=== PATIENT | female | born 1985 | race Caucasian/White ===

== ENCOUNTER 2017-08-02 04:23 | Outpatient (CLI) | payer OTHER, MEDICAID, SELFPAY | END 2017-08-02 15:00 | PROVIDERS: PCP Obstetrics & Gynecology; Visit Provider Obstetrics & Gynecology | DX: Z34.83 Encounter for supervision of other normal pregnancy, third trimester (principal); Z3A.37 37 weeks gestation of pregnancy | CPT/HCPCS: 59025; G0378 ==

== ENCOUNTER → 2018-04-14 11:58 | Outpatient (CLI) | payer OTHER, MEDICAID, SELFPAY ==
--- NOTE | 2018-04-14 | DI.RAD.S_ITS ---
PROCEDURE: XR HIP W PEL IF DONE RT 2V INDICATIONS: RIGHT HIP PAIN TECHNIQUE: 2 views of the hip were acquired. COMPARISON: None. FINDINGS: Bones: No fractures or dislocations. No suspicious bony lesions. The visualized pelvic ring appears intact. Soft tissues: No suspicious soft tissue calcifications or masses. IMPRESSION: Unremarkable radiographic examination of right hip. Dictated by: Thiago Mc M.D. on 04/14/2018 at 13:18 Approved by: Thiago Mc M.D. on 04/14/2018 at 13:18
== END ==
PROVIDERS: Family Provider Obstetrics & Gynecology; PCP Obstetrics & Gynecology; Visit Provider Family Medicine
DX: M25.551 Pain in right hip (principal)
CPT/HCPCS: 73502

== ENCOUNTER → 2018-04-19 12:32 | Outpatient (CLI) | payer OTHER, MEDICAID, SELFPAY ==
[2018-04-19 12:51] LABS: Add Manual Diff / Slide Review NO; Basophils Percent Auto 0.7 % (0-2); Eosinophils Percent Auto 0.6 % (2-4); Hematocrit 37.9 % (36-46); Hemoglobin 12.1 g/dL (12.0-16.0); Lymphocytes Percent Auto 11.3 % (25-40); Mean Corpuscular Hemoglobin 25.2 PG (26-34); Mean Corpuscular Volume 78.9 fL (80-100); Monocytes Percent Auto 5.8 % (3-14); Neutrophils Absolute Auto 10800 /uL (1500-7000); Neutrophils Percent Auto 81.6 % (50-75); Platelet Count 395 X10^3/uL (150-400); Red Cell Distribution Width 17.2 % (11.6-14.8); White Blood Cell Count 13.2 X10^3/uL (4.5-11.0)
[2018-04-19 13:33] LABS: Iron 163 ug/dL (37-170)
[2018-04-19 14:21] LABS: Ferritin 7.1 ng/mL (6.27-137)
== END ==
PROVIDERS: PCP Obstetrics & Gynecology; Visit Provider Physician Assistant
DX: L65.9 Nonscarring hair loss, unspecified (principal)
CPT/HCPCS: 36415; 82728; 83540; 85025

== ENCOUNTER → 2018-09-28 11:59 | Outpatient (CLI) | payer OTHER, MEDICAID, SELFPAY ==
[2018-09-28 13:59] LABS: HEMOLYSIS < 15 (0-50); Iron 30 ug/dL (37-170)
[2018-09-28 14:10] LABS: Percent Iron Saturation 11 % (15-50); Total Iron Binding Capacity 261 ug/dL (265-497); Transferrin 247 mg/dL (206-381)
[2018-09-28 15:59] LABS: Ferritin 12.9 ng/mL (6.27-137)
== END ==
PROVIDERS: Family Provider Obstetrics & Gynecology; PCP Obstetrics & Gynecology; Visit Provider Physician Assistant
DX: L65.9 Nonscarring hair loss, unspecified (principal)
CPT/HCPCS: 36415; 82728; 83540; 83550

== ENCOUNTER → 2019-02-16 11:25 | Outpatient (CLI) | payer OTHER, MEDICAID, SELFPAY ==
--- NOTE | 2019-02-16 | DI.RAD.S_ITS ---
PROCEDURE: XR HIP W PEL IF DONE LT 2V INDICATIONS: Pain in left hip TECHNIQUE: AP pelvis with lateral view(s) of the left hip(s). COMPARISON: [facility], LONG, XR HIP W PEL IF DONE RT 2V, 04/14/2018, 12:08. FINDINGS: Bones: No fractures or dislocations. Pelvic ring appears intact. There is appearance of apparent sclerosis which has developed within the femoral heads bilaterally compared to prior exam. It is less prominent on the lateral view. Soft tissues: The visualized bowel gas pattern is normal. No suspicious soft tissue calcifications. IMPRESSION: Apparent appearance of increased sclerosis within the femoral heads bilaterally compared to prior exam. While this is suspected to be partially artifactual, it does appear more prominent when compared to 04/14/18 exam. If pain remains of concern, MRI pelvis is recommended for further evaluation of marrow changes. Dictated by: Ana Rosa Mckeon M.D. on 02/16/2019 at 16:13 Approved by: Ana Rosa Mckeon M.D. on 02/16/2019 at 16:16
== END ==
PROVIDERS: Family Provider Obstetrics & Gynecology; PCP Obstetrics & Gynecology; Visit Provider Pain Medicine Pain Medicine
DX: M25.552 Pain in left hip (principal)
CPT/HCPCS: 73502

== ENCOUNTER 2019-05-01 22:07 | Emergency (ER) | payer OTHER, SELFPAY ==
[2019-05-01 22:09] VITALS: BP 135/90; PULSE 100; RESP 20; TEMP 36.6; O2SAT 100
[2019-05-02 01:01] VITALS: BP 120/80; PULSE 90; RESP 18; O2SAT 98
--- NOTE | 2019-05-02 03:08 | PC.NURSE ---
left at 0122 today vdc without being seen by provider.
== END 2019-05-02 02:15 | disposition left against medical advice (07) ==
PROVIDERS: Family Provider Obstetrics & Gynecology; PCP Obstetrics & Gynecology
CPT/HCPCS: 99281

== ENCOUNTER 2019-05-02 18:16 | Emergency (ER) | payer OTHER, SELFPAY ==
[2019-05-02 18:25] VITALS: BP 136/82; PULSE 104; RESP 16; TEMP 36.6; O2SAT 100
--- NOTE | 2019-05-02 20:26 | ED_ITS ---
HPI - Extremity Problem General Chief complaint: Extremity Problem,Nontraumatic Stated complaint: hip pain, left side Time Seen by Provider: 05/02/19 20:26 History of Present Illness HPI Narrative: 33-year-old woman with a history of lupus and chronic arthralgias along with avascular necrosis of the left hip scheduled for surgery on May [address] Heart at [facility]. She has been on 4 mg q.i.d. of Dilaudid orally for the last 6 years to deal with the lupus arthralgias as well as the hip pain. Her pain medications are managed through [facility]. She currently has plenty of Dilaudid. Over the last 48 hours she has had increasing left hip pain to the point where she is unable to walk and is having pain completely uncontrolled by her Dilaudid was unable to sleep last night. She came into the emergency room and unfortunately due to exceptional volumes she waited 4 hours and left prior to being seen. She denies any recreational IV drug use for at least 6 years. She has no fevers, cough dyspnea, abdominal pain, rashes. Related Data Home Medications Medication Instructions Recorded Confirmed gabapentin [Neurontin] 300 mg PO BID #0 11/16/16 hydromorphone [Dilaudid] 4 mg PO QIDP PRN #0 11/16/16 naproxen sodium 550 mg PO BID #0 11/16/16 Previous Rx's Medication Instructions Recorded oxycodone 10 mg tablet 10 mg PO Q6P PRN #28 tab 08/10/17 norethindrone (contraceptive) 0.35 0.35 mg PO DAILY #28 tab 09/14/17 mg tablet Allergies Allergy/AdvReac Type Severity Reaction Status Date / Time No Known Allergies Allergy Uncoded 07/20/17 12:56 Review of Systems Review of Systems Narrative: All systems reviewed and are unremarkable except as noted in HPI and below Patient History Social History Smoking Status: Never smoker Smoking Status: Never smoker Substance Use Type: does not use Exam Narrative Exam Narrative: General: Healthy appearing, in acute pain lying on her right side with a pillow between her knees unable to move her left hip in any range without severe pain. Able to give a complete and coherent history. Well- nourished well-developed HEENT: Moist mucous membranes, normal sclera with reactive pupils, Neck: No JVD, supple Respiratory: Lungs are clear to auscultation, no wheezing no rales no rhonchi. Full and symmetrical air movement Cardiac: Regular rate and rhythm no murmurs no bruits Abdomen: Soft nontender good bowel tones, no flank pain Skin: Warm and dry, no rashes. There's no redness warmth or erythema around the affected hip her SI joint Neurologic: Grossly neurologically intact with no obvious asymmetries or abnormalities Extremities: No trauma, well perfused Psych: Cooperative, appropriate insight and affect Initial Vital Signs Initial Vital Signs: Vital Signs Temperature 97.8 F 05/02/19 18:25 Pulse Rate 104 H 05/02/19 18:25 Respiratory Rate 16 05/02/19 18:25 Blood Pressure 136/82 05/02/19 18:25 Pulse Oximetry 100 05/02/19 18:25 Course Orders Ordered: ED Orders 05/02/19 20:38 XR hip w pel if done LT 2V Stat 05/02/19 20:44 Complete Blood Count AUTO DIFF Stat Comprehensive Metabolic Panel Stat Discontinued Medications Hydromorphone HCl (Dilaudid) 1 mg IV NOW ONE Stop: 05/02/19 20:39 Last Admin: 05/02/19 21:55 Dose: 1 mg Documented by: Hydromorphone HCl (Dilaudid) 2 mg IV NOW ONE Stop: 05/02/19 20:42 Last Admin: 05/02/19 21:01 Dose: 2 mg Documented by: Vital Signs Vital signs: Vital Signs - 8 hr 05/02/19 18:25 Temperature 97.8 F Pulse Rate 104 H Respiratory Rate 16 Blood Pressure 136/82 Pulse Oximetry 100 MDM - Extremity (Nontraumatic) Lab Data Attestation: I reviewed the patient's lab results. Lab results narrative: Labs reassuring with normal renal function and normal [facility] te blood cell count Result diagrams: 05/02/19 20:55 05/02/19 20:55 Labs: Lab Results 05/02/19 05/02/19 Range/Units 20:55 20:55 WBC 8.0 (4.5-11.0) X10^3/uL RBC 4.49 (4.0-5.2) X10^6/uL Hgb 12.8 (12.0-16.0) g/dL Hct 37.9 (36-46) % MCV 84.5 (80-100) fL MCH 28.5 (26-34) PG MCHC 33.7 (30-36) % RDW 13.6 (11.6-14.8) % Plt Count 363 (150-400) X10^3/uL Neut % (Auto) 69.4 (50-75) % Lymph % (Auto) 21.3 L (25-40) % Gage % (Auto) 7.8 (3-14) % Eos % (Auto) 1.1 L (2-4) % Baso % (Auto) 0.4 (0-2) % Neut # (Auto) 5500 (4394-4319) /uL Lymph # (Auto) 1700 (7339-9071) /uL Gage # (Auto) 600 (0-900) /uL Eos # (Auto) 100 (0-450) /uL Baso # (Auto) 0 (0-100) /uL Sodium 140 (137-145) mmol/L Potassium 4.1 (3.4-5.1) mmol/L Chloride 104 (98-107) mmol/L Carbon Dioxide 28 (22-32) mmol/L BUN 28 H (7-17) mg/dL Creatinine 0.50 L (0.52-1.04) mg/dL Estimated GFR > 60.0 (>60) mL/min BUN/Creatinine Ratio 56.0 H (6-22) Glucose 97 (70-100) mg/dL Calcium 9.4 (8.4-10.2) mg/dL Total Bilirubin 0.3 (0.2-1.3) mg/dL AST 24 (14-36) IU/L ALT 16 (<35) IU/L Alkaline Phosphatase 109 (38-126) U/L Total Protein 7.8 (6.3-8.2) g/dL Albumin 4.2 (3.5-5.0) g/dL Globulin 3.6 (1.7-4.1) g/dL Albumin/Globulin Ratio 1.2 (1.0-2.8) Imaging Data Pelvis and hip x-ray: Radiologist's Impression: IMPRESSION: Slightly increased cortical irregularity of the femoral heads when compared with the prior plain film dated 02/16/19 suggesting progression of avascular necrosis of the bilateral femoral heads. No findings to suggest vasile collapse. Dictated by: Archana Michel M.D. on 05/02/2019 at 21:03 [facility] Narrative Medical decision making narrative: Feeling better after 2 mg of IV Dilaudid at least able to move. Talked about additional pain control will do another mg of IV Dilaudid just prior to discharge. She has her 4 mg of p.o. Dilaudid to take this evening. Knowing that she will be having surgery on Tuesday with pain management changing to the orthopedist and that she does have plenty of oral Dilaudid at home I have suggested that she take up to 6 tablets rather than the prescribed 4 tablets on the 1 day prior to her surgery. 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 I'm sorry that your pain has gotten so much worse just prior to your surgery. That labs and x-rays do indicate that there is no acute changes and we need to simply help you manage your pain for another 48 hours I am going to suggest that you take up to 6 of your oral dilaudid tomorrow (rather than your prescribed 4mg). This is outside of the parameters for your pain contract with [facility], but you should not run out of pain meds early due to the scheduled surgery. If the surgeon has not requested stopping NSAIDS prior to surgery, please continue the naprosen. I hope your surgery goes well. Prescriptions: No Action naproxen sodium 550 MG tablet 550 mg PO BID Qty: 0 RF: 0 gabapentin [Neurontin] 300 MG capsule 300 mg PO BID Qty: 0 RF: 0 hydromorphone [Dilaudid] 4 MG tablet 4 mg PO QIDP PRNQty: 0 RF: 0 oxycodone 10 mg tablet 10 mg PO Q6P PRN (Reason: pain) Qty: 28 RF: 0 norethindrone (contraceptive) [Ortho Micronor] 0.35 mg tablet 0.35 mg PO DAILY Qty: 28 RF: 11 Referrals: Ashley Fulton MD [Primary Care Provider] -
--- NOTE | 2019-05-02 20:38 | DI.RAD.S_ITS ---
PROCEDURE: XR HIP W PEL IF DONE LT 2V INDICATIONS: Pain, avascular necrosis, concern for collapse TECHNIQUE: AP pelvis with lateral view(s) of the right hip(s). COMPARISON: [facility], , XR HIP W PEL IF DONE LT 2V, 02/16/2019, 11:38. FINDINGS: Bones: Sclerosis of the bilateral femoral heads is slightly more pronounced when compared with the prior plain film dated . No definite collapse, fracture, or dislocation. Soft tissues: The visualized bowel gas pattern is normal. No suspicious soft tissue calcifications. IMPRESSION: Slightly increased cortical irregularity of the femoral heads when compared with the prior plain film dated 02/16/19 suggesting progression of avascular necrosis of the bilateral femoral heads. No findings to suggest vasile collapse. Dictated by: Archana Michel M.D. on 05/02/2019 at 21:03 Approved by: Archana Michel M.D. on 05/02/2019 at 21:06
[2019-05-02] MEDS: HYDROMORPHONE 1 MG INJ 2 MG IV (21:01)
[2019-05-02 21:05] LABS: Add Manual Diff / Slide Review NO; Basophils Absolute Auto 0 /uL (0-100); Basophils Percent Auto 0.4 % (0-2); Eosinophils Absolute Auto 100 /uL (0-450); Eosinophils Percent Auto 1.1 % (2-4); Hematocrit 37.9 % (36-46); Hemoglobin 12.8 g/dL (12.0-16.0); Lymphocytes Absolute Auto 1700 /uL (1100-4500); Lymphocytes Percent Auto 21.3 % (25-40); Mean Corpuscular HGB Conc 33.7 % (30-36); Mean Corpuscular Hemoglobin 28.5 PG (26-34); Mean Corpuscular Volume 84.5 fL (80-100); Monocytes Absolute Auto 600 /uL (0-900); Monocytes Percent Auto 7.8 % (3-14); Neutrophils Absolute Auto 5500 /uL (1500-7000); Neutrophils Percent Auto 69.4 % (50-75); Platelet Count 363 X10^3/uL (150-400); Red Blood Cell Count 4.49 X10^6/uL (4.0-5.2); Red Cell Distribution Width 13.6 % (11.6-14.8)
[2019-05-02 21:18] LABS: Alanine Aminotransferase 16 IU/L (<35); Albumin 4.2 g/dL (3.5-5.0); Albumin Globulin Ratio 1.2 (1.0-2.8); Alkaline Phosphatase 109 U/L (38-126); Aspartate Aminotransferase 24 IU/L (14-36); Bilirubin Total 0.3 mg/dL (0.2-1.3); Blood Urea Nitrogen 28 mg/dL (7-17); Calcium 9.4 mg/dL (8.4-10.2); Carbon Dioxide 28 mmol/L (22-32); Chloride 104 mmol/L (98-107); Estimated Glomerular Filt Rate > 60.0 mL/min (>60); Globulin 3.6 g/dL (1.7-4.1); Glucose 97 mg/dL (70-100); HEMOLYSIS < 15 (0-50); Potassium 4.1 mmol/L (3.4-5.1); Sodium 140 mmol/L (137-145); Total Protein 7.8 g/dL (6.3-8.2)
[2019-05-02] MEDS: HYDROMORPHONE 1 MG INJ IV (21:55)
[2019-05-02 22:31] VITALS: BP 118/70; PULSE 79; RESP 16; O2SAT 97
== END 2019-05-02 22:31 | disposition home or self-care (01) ==
PROVIDERS: Emergency Provider Emergency Medicine; Family Provider Obstetrics & Gynecology; PCP Obstetrics & Gynecology
DX: M87.052 Idiopathic aseptic necrosis of left femur (principal)
CPT/HCPCS: 73502; 80053; 85025; 96374; 96376; 99283; 99284; J1170

== ENCOUNTER 2019-05-21 12:45 | Outpatient (RCR) | payer OTHER, SELFPAY ==
--- NOTE | 2019-05-03 14:41 | PT.OIE ---
Current Diagnoses Trochanteric bursitis, right hip (05/03/19) Trochanteric bursitis, left hip (05/03/19) Idiopathic aseptic necrosis of left femur (05/03/19) Encounter for other preprocedural examination (05/03/19) Visit Care Team Role Provider Type Ashley Fulton MD Family Provider Physician Primary Care Provider Specialty: SHOT PACKER Address: [address] [place] [address], [id number] Email: [email or web address] Bender Attending Provider Non-Staff Specialty: Medical Address: [address] [place] [address], [id number] Email: Physical Therapy Initial Evaluation PT-OP-A Visit Information Start: 05/03/19 09:44 Freq: Status: Active Protocol: Document 05/03/19 09:44 [facility] (Rec: 05/03/19 10:07 [facility] [id number]) Out-Patient Physical Therapy Visit Information Visit Information Visit Type Initial Evaluation Visit Start Time 09:45 Visit Stop Time 10:30 Total Visit Minutes 45 Visit Number 1 Evaluation Information Evaluation Date 05/03/19 PT-OP-B Current Condition Start: 05/03/19 09:44 Freq: Status: Active Protocol: Document 05/03/19 09:44 [facility] (Rec: 05/03/19 10:07 [facility] [id number]) Current Condition History of Current Condition Onset Date March 2018 Kelley began experiencing hip pain Current Complaints severe anterior hip pain on the left and intermittent right sided hip pain History of Current Condition Pt reports she was diagnosed with avascular necrosis She had been getting injections for her bursa and it wasn't helping History of lupus x 6 years ago , she was on a high level of steroids and she has a history of smoking. She is schedule for a anterior approach total hip replacement on the left hip tomorrow 05/04/2019. The right hip still needs to be scheduled out. The right side is very sore as well but they have not scheduled her right side yet. Pt has 5 stairs up to her porch at her house with one railing. Current Functional Impairments (Reported) Functional Limitations- ADL's using a walker to take off pressure from her hips, very limited with ADL's Functional Limitations- Mobility/Gait Pain and decreased mobility at this time, using a FWW for ambulation. She has quite a bit of difficulty walking 2 blocks PT-OP-C Subjective Start: 05/03/19 09:44 Freq: Status: Active Protocol: Document 05/03/19 14:16 [facility] (Rec: 05/03/19 14:27 [facility] [email or web address]) Patient Questionnaires Lower Extremity Functional Scale LEFS Score 20 LEFS Impairment 60 to 79% Impaired (Score 17- 31) OP-PT Pain Assessment Location left anterior and lateral hip Pain Location Details left anterior and lateral hip Intensity 7 Scale Used Numeric (1 - 10) Frequency Constant PT-OP-F Manual Assessment Start: 05/03/19 09:44 Freq: Status: Active Protocol: Document 05/03/19 14:16 [facility] (Rec: 05/03/19 14:27 [facility] [email or web address]) Manual Assessments Soft Tissue Assessment Soft Tissue Mobility Assessment tightness of the lateral quads and ITB, muscle atrophy B PT-OP-G Mobility & Gait Start: 05/03/19 09:44 Freq: Status: Active Protocol: Document 05/03/19 14:16 [facility] (Rec: 05/03/19 14:27 [facility] [email or web address]) OP Mobility Evaluation Bed Mobility Rolling able to roll IND but painful Supine to and from Sit IND Transfers Sit to Stand IND with use of FWW Bed to Chair Transfers IND with use of FWW PT-OP-J Posture/Palpation/Skin Start: 05/03/19 09:44 Freq: Status: Active Protocol: Document 05/03/19 14:16 [facility] (Rec: 05/03/19 14:27 [facility] [email or web address]) Palpation Assessment Location Two Palpation Location anterior hip and groin Palpation Findings Soft Tissue Tightness,Spasm, Muscle Guarding,Tenderness One Palpation Location tenderness over the lateral tronchanteric bursa B Palpation Findings Tenderness PT-OP-K Range of Motion Start: 05/03/19 09:44 Freq: Status: Active Protocol: Document 05/03/19 14:29 [facility] (Rec: 05/03/19 14:30 [facility] [email or web address]) Hip Goniometric Range of Motion Hip Right Hip ROM WFL No Flexion w/Knee Flexed 125 Straight Leg Raise 70 External Rotation 35 Left Hip ROM WFL No Flexion w/Knee Flexed 120 Straight Leg Raise 65 External Rotation 30 Hip ROM Limitations Hip ROM Limitations Pain Comments pt limited at end range ROM due to pain PT-OP-M Strength Start: 05/03/19 09:44 Freq: Status: Active Protocol: Document 05/03/19 14:16 [facility] (Rec: 05/03/19 14:27 [facility] [email or web address]) Hip Strength Hip Manual Muscle Testing Right Flexion (L2) 3 Fair Extension (S1) 3 Fair Abduction 2+ Poor+ External Rotation 3 Fair Left Flexion (L2) 3 Fair Extension (S1) 3 Fair Abduction 2+ Poor+ External Rotation 2+ Poor+ PT-OP-T Assessment and Plan Start: 05/03/19 09:44 Freq: Status: Active Protocol: Document 05/03/19 14:16 [facility] (Rec: 05/03/19 14:27 [facility] [email or web address]) Physical Therapy Assessment Rehab Potential Rehabilitation Potential Excellent Evaluation Complexity Number of Personal Factors/Comorbidities 0 Number of Body Systems Impaired 1-2 Clinical Presentation at Evaluation Stable Impairments Impairments Activity Tolerance,Balance, Functional Mobility,Gait,Pain, Soft Tissue Mobility,Strength Goals Three Impairment limited walking distance to less than 2 blocks due to pain Short Term Goal (STG) Increase walking distance with FWW to 3-4 blocks with overall reduction in pain STG Duration 6 weeks Apprentice Cook Goal (LTG) With gait training Kelley is able to discontinue use of her walking and walking distance is increased to 20-30 minutes without a increase in pain levels Two Impairment Weakness of bilateral hips Short Term Goal (STG) Kelley is educated in preoperative exercises to begin following surgery STG Duration 1 day Apprentice Cook Goal (LTG) Kelley is seen following Left Total hip arthroplasty and tolerating a post op total hip strengthening program. She is able to increase her MMT of the left hip to 4/5 or greater LTG Duration 8 weeks 1 Impairment left sided hip pain rated 7/10 pre surgery Correction Goal (LTG) With PT following total hip arthroplasty pain levels at rest have decreased overall to 2-3/10 LTG Duration 8 weeks Assessment Summary Assessment Kelley presents to PT one day prior to her anterior hip replacement surgery. She reports her doctor had prescribed PT to do prior to surgery but her surgery got moved up and last week she had to cancel due to the heavy snow so therefore today is her first day of PT. Due to anterior hip replacement scheduled tomorrow I did a pre op visit with her. She was instructed in hip precautions for anterior hip replacement and given exercises that she can do after surgery. She is currently ambulating with a fww and her home is set up for after surgery. Questions regarding surgery were answered and Kelley is scheduled to resume PT after her hip surgery. A reassessment will be done at that visit. Physical Therapy Plan Frequency and Duration Frequency of Treatment 2x/Week Duration of Treatment 8 Plan of Care Start Date 05/03/19 Plan of Care End Date 06/28/19 Therapeutic Interventions Therapeutic Interventions Balance Training,Home Exercise Program,Neuromuscular Re- education,Patient/Caregiver Education,Self-Care/Home Management,Soft Tissue Mobilization,Therapeutic Exercises Next Visit Focus/Plan Next Note Type Treatment Note Next Visit Plan Reassessment next visit as Kelley will have had her left total hip replacement on 2019. Treatment will also include right hip as she is experiencing pain in the right as well.
--- NOTE | 2019-05-03 14:41 | PT.OPPOC ---
Physical, Occupational & Speech Therapy At [facility] Current Diagnoses Trochanteric bursitis, right hip (05/03/19) Trochanteric bursitis, left hip (05/03/19) Idiopathic aseptic necrosis of left femur (05/03/19) Encounter for other preprocedural examination (05/03/19) Visit Care Team Role Provider Type Ashley Fulton MD Family Provider Physician Primary Care Provider Specialty: PRINCIPAL CLERK Address: [address] [place] [address], [id number] Email: [email or web address] Bender Attending Provider Non-Staff Specialty: Medical Address: [address] [place] [address] , [place], [address] Email: Plan Of Care PT-OP-T Assessment and Plan Start: 05/03/19 09:44 Freq: Status: Active Protocol: Document 05/03/19 14:16 [facility] (Rec: 05/03/19 14:27 [facility] [email or web address]) Physical Therapy Assessment Rehab Potential Rehabilitation Potential Excellent Evaluation Complexity Number of Personal Factors/Comorbidities 0 Number of Body Systems Impaired 1-2 Clinical Presentation at Evaluation Stable Impairments Impairments Activity Tolerance,Balance, Functional Mobility,Gait,Pain, Soft Tissue Mobility,Strength Goals Three Impairment limited walking distance to less than 2 blocks due to pain Short Term Goal (STG) Increase walking distance with FWW to 3-4 blocks with overall reduction in pain STG Duration 6 weeks [facility] Goal (LTG) With gait training Kelley is able to discontinue use of her walking and walking distance is increased to 20-30 minutes without a increase in pain levels Two Impairment Weakness of bilateral hips Short Term Goal (STG) Kelley is educated in preoperative exercises to begin following surgery STG Duration 1 day [facility] Goal (LTG) Kelley is seen following Left Total hip arthroplasty and tolerating a post op total hip strengthening program. She is able to increase her MMT of the left hip to 4/5 or greater LTG Duration 8 weeks 1 Impairment left sided hip pain rated 7/10 pre surgery Document Controller Goal (LTG) With PT following total hip arthroplasty pain levels at rest have decreased overall to 2-3/10 LTG Duration 8 weeks Assessment Summary Assessment Kelley presents to PT one day prior to her anterior hip replacement surgery. She reports her doctor had prescribed PT to do prior to surgery but her surgery got moved up and last week she had to cancel due to the heavy snow so therefore today is her first day of PT. Due to anterior hip replacement scheduled tomorrow I did a pre op visit with her. She was instructed in hip precautions for anterior hip replacement and given exercises that she can do after surgery. She is currently ambulating with a fww and her home is set up for after surgery. Questions regarding surgery were answered and Kelley is scheduled to resume PT after her hip surgery. A reassessment will be done at that visit. Physical Therapy Plan Frequency and Duration Frequency of Treatment 2x/Week Duration of Treatment 8 Plan of Care Start Date 05/03/19 Plan of Care End Date 06/28/19 Therapeutic Interventions Therapeutic Interventions Balance Training,Home Exercise Program,Neuromuscular Re- education,Patient/Caregiver Education,Self-Care/Home Management,Soft Tissue Mobilization,Therapeutic Exercises Next Visit Focus/Plan Next Note Type Treatment Note Next Visit Plan Reassessment next visit as Kelley will have had her left total hip replacement on 2019. Treatment will also include right hip as she is experiencing pain in the right as well. Plan of Care Dates Plan of Care Start Date 05/03/19 Plan of Care End Date 06/28/19 Electronically Signed by: Wendi Butler, PT 05/03/19 2514 Please Sign and Return: I have reviewed this Plan of Care and certify that the skilled therapy services above are required to meet the patient?s needs. Physician Signature Date Printed Name and Credentials Clinical Instructor Signature Printed Name and Credentials
--- NOTE | 2019-05-17 11:09 | PT.OTRE ---
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) Encounter for other preprocedural examination (05/16/19) Visit Care Team Role Provider Type Ashley Fulton MD Family Provider Physician Primary Care Provider Specialty: MONEY POSITION OFFICER Address: [address] [place] [address], [id number] Email: [email or web address] Randall Bender Attending Provider Non-Staff Specialty: Medical Address: [address] [place] [address], [place], [address] Email: Physical Therapy Re-Evaluation PT-OP-A Visit Information Start: 05/03/19 09:44 Freq: Status: Active Protocol: Document 05/16/19 14:18 [facility] (Rec: 05/16/19 14:19 [facility] [email or web address]) Out-Patient Physical Therapy Visit Information Visit Information Visit Type Re-Evaluation Visit Note pt had her left total hip replacement and is 2 weeks post op today. She has a history of avascular necrosis of bilateral hips and will be planning the right total hip for in the future Visit Start Time 11:15 Visit Stop Time 12:00 Total Visit Minutes 45 Visit Number 2 Evaluation Information Evaluation Date 05/03/19 PT-OP-B Current Condition Start: 05/03/19 09:44 Freq: Status: Active Protocol: Document 05/16/19 11:15 [facility] (Rec: 05/17/19 10:53 [facility] [id number]) Current Condition History of Current Condition Onset Date March 2018 Kelley began experiencing hip pain Current Complaints severe anterior hip pain on the left and intermittent right sided hip pain History of Current Condition Pt reports she was diagnosed with avascular necrosis She had been getting injections for her bursa and it wasn't helping History of lupus x 6 years ago , she was on a high level of steroids and she has a history of smoking. She is 2 weeks post op left total hip replacement (05/04/2019). The right hip still needs to be scheduled out. Pt is ambulating with a fww with WBAT left hip. SHe understands her precautions of avoiding hip extension and ER Pt has 5 stairs up to her porch at her house with one railing. Treatment Goals Patient/Caregiver Goals Pt's goals include decreasing pain levels and return to being able to take care of her children without pain. Current Functional Impairments (Reported) Functional Limitations- Mobility/Gait Pt using FWW, gait feeling better after surgery, she has ambulated outside the house only 1 time since surgery Functional Limitations- Other bending and lifting activities are challanging PT-OP-C Subjective Start: 05/03/19 09:44 Freq: Status: Active Protocol: Document 05/16/19 11:19 [facility] (Rec: 05/16/19 11:26 [facility] [id number]) OP-PT Subjective Patient Comments Patient Comments Pt is here following her total hip replacement on the right side 05/04/19. Pt notes she got the flu the day she was discharged from the hospital. She is using walker for assistance. Took pain meds before her appointment today. Her pain is a 7/10. It hurts to flex her hip and donning and doffing pants and socks. She had a anterior hip replacement and understands precautions. Pt is able to go up and down the stairs. OP-PT Pain Assessment Location left anterior and lateral hip Intensity 7 Scale Used Numeric (1 - 10) Description Aching PT-OP-F Manual Assessment Start: 05/03/19 09:44 Freq: Status: Active Protocol: Document 05/03/19 14:16 [facility] (Rec: 05/03/19 14:27 [facility] [id number]) Manual Assessments Soft Tissue Assessment Soft Tissue Mobility Assessment tightness of the lateral quads and ITB, muscle atrophy B PT-OP-G Mobility & Gait Start: 05/03/19 09:44 Freq: Status: Active Protocol: Document 05/16/19 11:15 [facility] (Rec: 05/17/19 10:53 [facility] [id number]) OP Mobility Evaluation Bed Mobility Rolling able to roll IND but painful Supine to and from Sit IND Transfers Sit to Stand IND with use of FWW Bed to Chair Transfers IND with use of FWW OP Gait Assessment Gait Gait Assistance Required: Independent Distance (Feet) 350 Able to Maintain Weight Bearing Status Yes During Gait Gait Deviations General Gait Pattern Decreased Stride Length Factors Limiting Gait Function Factors Limiting Gait Function Decreased Strength,Limited Range of Motion,Pain PT-OP-J Posture/Palpation/Skin Start: 05/03/19 09:44 Freq: Status: Active Protocol: Document 05/03/19 14:16 [facility] (Rec: 05/03/19 14:27 [facility] [email or web address]) Palpation Assessment Location Two Palpation Location anterior hip and groin Palpation Findings Soft Tissue Tightness,Spasm, Muscle Guarding,Tenderness One Palpation Location tenderness over the lateral tronchanteric bursa B Palpation Findings Tenderness PT-OP-K Range of Motion Start: 05/03/19 09:44 Freq: Status: Active Protocol: Document 05/16/19 11:15 [facility] (Rec: 05/17/19 10:53 [facility] [id number]) Hip Goniometric Range of Motion Hip Measured in Degrees Right Hip ROM WFL No Flexion w/Knee Flexed 125 Straight Leg Raise 70 Abduction 20 External Rotation 35 Left Hip ROM WFL No Flexion w/Knee Flexed 110 Straight Leg Raise 60 External Rotation 30 PT-OP-M Strength Start: 05/03/19 09:44 Freq: Status: Active Protocol: Document 05/16/19 11:15 [facility] (Rec: 05/17/19 10:53 [facility] [id number]) Hip Strength Hip Manual Muscle Testing Right Flexion (L2) 3 Fair Extension (S1) 3 Fair Abduction 2+ Poor+ External Rotation 3 Fair Left Flexion (L2) 2+ Poor+ Abduction 2+ Poor+ External Rotation 2+ Poor+ Comments extension was not retesed today secondary to s/p FRANKY on the left PT-OP-Q Treatments Start: 05/03/19 09:44 Freq: Status: Active Protocol: Document 05/16/19 11:15 [facility] (Rec: 05/17/19 10:57 [facility] [id number]) Therapeutic Exercises Supine Exercises supine AROM HIP ABDUCTION Side left Reps/Minutes x 10 heel slides Supine Exercise Name heel slides Side left Reps/Minutes x 10 quad sets Supine Exercise Name quad sets Side bilateral Reps/Minutes 10 reps holding 5 seconds each Standing Exercises standing hip abduction Standing Exercise Name standing hip abduction Side bilateral Equipment Used at the bars for UE support Reps/Minutes 2 x 10 reps standing side steps Standing Exercise Name standing side steps Side bilateral Reps/Minutes 4 xms length of parallel bars standing calf raises Standing Exercise Name standing calf raises Side bilateral Equipment Used bars for support Reps/Minutes 2 x 10 reps marches at the bars for support Standing Exercise Name standing marches Side bilateral Reps/Minutes 2 x 10 reps PT-OP-T Assessment and Plan Start: 05/03/19 09:44 Freq: Status: Active Protocol: Document 05/16/19 11:15 [facility] (Rec: 05/17/19 11:06 [facility] [id number]) Physical Therapy Assessment Rehab Potential Rehabilitation Potential Excellent Evaluation Complexity Number of Personal Factors/Comorbidities 0 Number of Body Systems Impaired 1-2 Clinical Presentation at Evaluation Stable Impairments Impairments Activity Tolerance,Balance, Functional Mobility,Gait,Pain, Soft Tissue Mobility,Strength Goals One Impairment Decreased left hip ROM s/p FRANKY Short Term Goal (STG) Kelley has improved ROM of the left hip to WFL STG Duration 5 weeks Three Impairment limited walking distance to less than 2 blocks due to pain Short Term Goal (STG) Increase walking distance with FWW to 3-4 blocks with overall reduction in pain STG Duration 6 weeks Care Home Goal (LTG) With gait training Kelley is able to discontinue use of her walking and walking distance is increased to 20-30 minutes without a increase in pain levels Two Impairment Weakness of bilateral hips Short Term Goal (STG) Kelley is educated in preoperative exercises to begin following surgery STG Duration 1 day Care Home Goal (LTG) Kelley is seen following Left Total hip arthroplasty and tolerating a post op total hip strengthening program. She is able to increase her MMT of the left hip to 4/5 or greater LTG Duration 8 weeks 1 Impairment left sided hip pain rated 7/10 pre surgery [employer] Teacher Goal (LTG) With PT following total hip arthroplasty pain levels at rest have decreased overall to 2-3/10 As of 2/5 Kelley has 7/1- pain levels however she notes it is a different pain than before surgery LTG Duration 8 weeks Assessment Summary Assessment Kelley returns to PT today s/p left total hip replacement ( anterior approach). This is due to avascular necrosis of the femoral head. She was seen for 1 visit prior to her surgery for prehab. She is ambulating with a fww and feels that she can take a good amount of weight onto her left leg. She understands her anterior hip precautions and has been using ice at home. She reports so far her right leg has been doing okay, she is complaining of left sided lower back pain. Physical Therapy Plan Frequency and Duration Frequency of Treatment 2x/Week Duration of Treatment 8 Plan of Care Start Date 05/03/19 Plan of Care End Date 06/28/19 Therapeutic Interventions Therapeutic Interventions Balance Training,Home Exercise Program,Neuromuscular Re- education,Patient/Caregiver Education,Self-Care/Home Management,Soft Tissue Mobilization,Therapeutic Exercises Next Visit Focus/Plan Next Note Type Treatment Note Next Visit Plan Increase hip strengthening as tolerated within precautions for s/p anterior approach FRANKY. Continue to strengthen the right hip as well as Kelley will be having surgery on this side at a later date, gait training for community ambulation with fww and stair training
--- NOTE | 2019-05-17 11:11 | PT.OTRE ---
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) Encounter for other preprocedural examination (05/16/19) Visit Care Team Role Provider Type Ashley Fulton MD Family Provider Physician Primary Care Provider Specialty: RECEPTION SPECIALIST Address: [address] [place] [address], [address] Email: [email or web address] Randall Bender Attending Provider Non-Staff Specialty: Medical Address: [address] [place] [address], [place], [address] Email: Physical Therapy Re-Evaluation PT-OP-A Visit Information Start: 05/03/19 09:44 Freq: Status: Active Protocol: Document 05/16/19 14:18 [facility] (Rec: 05/16/19 14:19 [facility] [email or web address]) Out-Patient Physical Therapy Visit Information Visit Information Visit Type Re-Evaluation Visit Note pt had her left total hip replacement and is 2 weeks post op today. She has a history of avascular necrosis of bilateral hips and will be planning the right total hip for in the future Visit Start Time 11:15 Visit Stop Time 12:00 Total Visit Minutes 45 Visit Number 2 Evaluation Information Evaluation Date 05/03/19 PT-OP-B Current Condition Start: 05/03/19 09:44 Freq: Status: Active Protocol: Document 05/16/19 11:15 [facility] (Rec: 05/17/19 10:53 [facility] [id number]) Current Condition History of Current Condition Onset Date March 2018 Kelley began experiencing hip pain Current Complaints severe anterior hip pain on the left and intermittent right sided hip pain History of Current Condition Pt reports she was diagnosed with avascular necrosis She had been getting injections for her bursa and it wasn't helping History of lupus x 6 years ago , she was on a high level of steroids and she has a history of smoking. She is 2 weeks post op left total hip replacement (05/04/2019). The right hip still needs to be scheduled out. Pt is ambulating with a fww with WBAT left hip. SHe understands her precautions of avoiding hip extension and ER Pt has 5 stairs up to her porch at her house with one railing. Treatment Goals Patient/Caregiver Goals Pt's goals include decreasing pain levels and return to being able to take care of her children without pain. Current Functional Impairments (Reported) Functional Limitations- Mobility/Gait Pt using FWW, gait feeling better after surgery, she has ambulated outside the house only 1 time since surgery Functional Limitations- Other bending and lifting activities are challanging PT-OP-C Subjective Start: 05/03/19 09:44 Freq: Status: Active Protocol: Document 05/16/19 11:19 [facility] (Rec: 05/16/19 11:26 [facility] [id number]) OP-PT Subjective Patient Comments Patient Comments Pt is here following her total hip replacement on the right side 05/04/19. Pt notes she got the flu the day she was discharged from the hospital. She is using walker for assistance. Took pain meds before her appointment today. Her pain is a 7/10. It hurts to flex her hip and donning and doffing pants and socks. She had a anterior hip replacement and understands precautions. Pt is able to go up and down the stairs. OP-PT Pain Assessment Location left anterior and lateral hip Intensity 7 Scale Used Numeric (1 - 10) Description Aching PT-OP-F Manual Assessment Start: 05/03/19 09:44 Freq: Status: Active Protocol: Document 05/03/19 14:16 [facility] (Rec: 05/03/19 14:27 [facility] [email or web address]) Manual Assessments Soft Tissue Assessment Soft Tissue Mobility Assessment tightness of the lateral quads and ITB, muscle atrophy B PT-OP-G Mobility & Gait Start: 05/03/19 09:44 Freq: Status: Active Protocol: Document 05/16/19 11:15 [facility] (Rec: 05/17/19 10:53 [facility] [id number]) OP Mobility Evaluation Bed Mobility Rolling able to roll IND but painful Supine to and from Sit IND Transfers Sit to Stand IND with use of FWW Bed to Chair Transfers IND with use of FWW OP Gait Assessment Gait Gait Assistance Required: Independent Distance (Feet) 350 Able to Maintain Weight Bearing Status Yes During Gait Gait Deviations General Gait Pattern Decreased Stride Length Factors Limiting Gait Function Factors Limiting Gait Function Decreased Strength,Limited Range of Motion,Pain PT-OP-J Posture/Palpation/Skin Start: 05/03/19 09:44 Freq: Status: Active Protocol: Document 05/03/19 14:16 [facility] (Rec: 05/03/19 14:27 [facility] [email or web address]) Palpation Assessment Location Two Palpation Location anterior hip and groin Palpation Findings Soft Tissue Tightness,Spasm, Muscle Guarding,Tenderness One Palpation Location tenderness over the lateral tronchanteric bursa B Palpation Findings Tenderness PT-OP-K Range of Motion Start: 05/03/19 09:44 Freq: Status: Active Protocol: Document 05/16/19 11:15 [facility] (Rec: 05/17/19 10:53 [facility] [id number]) Hip Goniometric Range of Motion Hip Measured in Degrees Right Hip ROM WFL No Flexion w/Knee Flexed 125 Straight Leg Raise 70 Abduction 20 External Rotation 35 Left Hip ROM WFL No Flexion w/Knee Flexed 110 Straight Leg Raise 60 External Rotation 30 PT-OP-M Strength Start: 05/03/19 09:44 Freq: Status: Active Protocol: Document 05/16/19 11:15 [facility] (Rec: 05/17/19 10:53 [facility] [id number]) Hip Strength Hip Manual Muscle Testing Right Flexion (L2) 3 Fair Extension (S1) 3 Fair Abduction 2+ Poor+ External Rotation 3 Fair Left Flexion (L2) 2+ Poor+ Abduction 2+ Poor+ External Rotation 2+ Poor+ Comments extension was not retesed today secondary to s/p FRANKY on the left PT-OP-Q Treatments Start: 05/03/19 09:44 Freq: Status: Active Protocol: Document 05/16/19 11:15 [facility] (Rec: 05/17/19 10:57 [facility] [id number]) Therapeutic Exercises Supine Exercises supine AROM HIP ABDUCTION Side left Reps/Minutes x 10 heel slides Supine Exercise Name heel slides Side left Reps/Minutes x 10 quad sets Supine Exercise Name quad sets Side bilateral Reps/Minutes 10 reps holding 5 seconds each Standing Exercises standing hip abduction Standing Exercise Name standing hip abduction Side bilateral Equipment Used at the bars for UE support Reps/Minutes 2 x 10 reps standing side steps Standing Exercise Name standing side steps Side bilateral Reps/Minutes 4 xms length of parallel bars standing calf raises Standing Exercise Name standing calf raises Side bilateral Equipment Used bars for support Reps/Minutes 2 x 10 reps marches at the bars for support Standing Exercise Name standing marches Side bilateral Reps/Minutes 2 x 10 reps PT-OP-T Assessment and Plan Start: 05/03/19 09:44 Freq: Status: Active Protocol: Document 05/16/19 11:15 [facility] (Rec: 05/17/19 11:06 [facility] [id number]) Physical Therapy Assessment Rehab Potential Rehabilitation Potential Excellent Evaluation Complexity Number of Personal Factors/Comorbidities 0 Number of Body Systems Impaired 1-2 Clinical Presentation at Evaluation Stable Impairments Impairments Activity Tolerance,Balance, Functional Mobility,Gait,Pain, Soft Tissue Mobility,Strength Goals One Impairment Decreased left hip ROM s/p FRANKY Short Term Goal (STG) Kelley has improved ROM of the left hip to WFL STG Duration 5 weeks Three Impairment limited walking distance to less than 2 blocks due to pain Short Term Goal (STG) Increase walking distance with FWW to 3-4 blocks with overall reduction in pain STG Duration 6 weeks [facility] Goal (LTG) With gait training Kelley is able to discontinue use of her walking and walking distance is increased to 20-30 minutes without a increase in pain levels Two Impairment Weakness of bilateral hips Short Term Goal (STG) Kelley is educated in preoperative exercises to begin following surgery STG Duration 1 day [facility] Goal (LTG) Kelley is seen following Left Total hip arthroplasty and tolerating a post op total hip strengthening program. She is able to increase her MMT of the left hip to 4/5 or greater LTG Duration 8 weeks 1 Impairment left sided hip pain rated 7/10 pre surgery Piano Regulator Goal (LTG) With PT following total hip arthroplasty pain levels at rest have decreased overall to 2-3/10 As of 2/5 Kelley has 7/1- pain levels however she notes it is a different pain than before surgery LTG Duration 8 weeks Assessment Summary Assessment Kelley returns to PT today s/p left total hip replacement ( anterior approach). This is due to avascular necrosis of the femoral head. She was seen for 1 visit prior to her surgery for prehab. She is ambulating with a fww and feels that she can take a good amount of weight onto her left leg. She understands her anterior hip precautions and has been using ice at home. She reports so far her right leg has been doing okay, she is complaining of left sided lower back pain. Physical Therapy Plan Frequency and Duration Frequency of Treatment 2x/Week Duration of Treatment 8 Plan of Care Start Date 05/16/19 Plan of Care End Date 07/11/19 Therapeutic Interventions Therapeutic Interventions Balance Training,Home Exercise Program,Neuromuscular Re- education,Patient/Caregiver Education,Self-Care/Home Management,Soft Tissue Mobilization,Therapeutic Exercises Next Visit Focus/Plan Next Note Type Treatment Note Next Visit Plan Increase hip strengthening as tolerated within precautions for s/p anterior approach FRANKY. Continue to strengthen the right hip as well as Kelley will be having surgery on this side at a later date, gait training for community ambulation with fww and stair training
--- NOTE | 2019-05-17 11:12 | PT.OPPOC ---
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) Encounter for other preprocedural examination (05/16/19) Visit Care Team Role Provider Type Ashley Fulton MD Family Provider Physician Primary Care Provider Specialty: SUPPORT SERVICES MANAGER Address: [address] [place] [address], [id number] Email: [email or web address] Randall Bender Attending Provider Non-Staff Specialty: Medical Address: [address] [place] [address] , [place], [address] Email: Plan Of Care PT-OP-T Assessment and Plan Start: 05/03/19 09:44 Freq: Status: Active Protocol: Document 05/16/19 11:15 [facility] (Rec: 05/17/19 11:06 [facility] [id number]) Physical Therapy Assessment Rehab Potential Rehabilitation Potential Excellent Evaluation Complexity Number of Personal Factors/Comorbidities 0 Number of Body Systems Impaired 1-2 Clinical Presentation at Evaluation Stable Impairments Impairments Activity Tolerance,Balance, Functional Mobility,Gait,Pain, Soft Tissue Mobility,Strength Goals One Impairment Decreased left hip ROM s/p FRANKY Short Term Goal (STG) Kelley has improved ROM of the left hip to WFL STG Duration 5 weeks Three Impairment limited walking distance to less than 2 blocks due to pain Short Term Goal (STG) Increase walking distance with FWW to 3-4 blocks with overall reduction in pain STG Duration 6 weeks Maintenance Custodian Goal (LTG) With gait training Kelley is able to discontinue use of her walking and walking distance is increased to 20-30 minutes without a increase in pain levels Two Impairment Weakness of bilateral hips Short Term Goal (STG) Kelley is educated in preoperative exercises to begin following surgery STG Duration 1 day Maintenance Custodian Goal (LTG) Kelley is seen following Left Total hip arthroplasty and tolerating a post op total hip strengthening program. She is able to increase her MMT of the left hip to 4/5 or greater LTG Duration 8 weeks 1 Impairment left sided hip pain rated 7/10 pre surgery Maintenance Custodian Goal (LTG) With PT following total hip arthroplasty pain levels at rest have decreased overall to 2-3/10 As of 05/16 Kelley has 7/1- pain levels however she notes it is a different pain than before surgery LTG Duration 8 weeks Assessment Summary Assessment Kelley returns to PT today s/p left total hip replacement ( anterior approach). This is due to avascular necrosis of the femoral head. She was seen for 1 visit prior to her surgery for prehab. She is ambulating with a fww and feels that she can take a good amount of weight onto her left leg. She understands her anterior hip precautions and has been using ice at home. She reports so far her right leg has been doing okay, she is complaining of left sided lower back pain. Physical Therapy Plan Frequency and Duration Frequency of Treatment 2x/Week Duration of Treatment 8 Plan of Care Start Date 05/16/19 Plan of Care End Date 07/11/19 Therapeutic Interventions Therapeutic Interventions Balance Training,Home Exercise Program,Neuromuscular Re- education,Patient/Caregiver Education,Self-Care/Home Management,Soft Tissue Mobilization,Therapeutic Exercises Next Visit Focus/Plan Next Note Type Treatment Note Next Visit Plan Increase hip strengthening as tolerated within precautions for s/p anterior approach FRANKY. Continue to strengthen the right hip as well as Kelley will be having surgery on this side at a later date, gait training for community ambulation with fww and stair training Plan of Care Dates Plan of Care Start Date 05/16/19 Plan of Care End Date 07/11/19 Electronically Signed by: Wendi Butler, PT 05/17/19 [id number] Please Sign and Return: I have reviewed this Plan of Care and certify that the skilled therapy services above are required to meet the patient?s needs. Physician Signature Date Printed Name and Credentials Clinical Instructor Signature Printed Name and Credentials
--- NOTE | 2019-05-21 13:35 | PT.OTN ---
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) Encounter for other preprocedural examination (05/21/19) Physical Therapy Treatment Note PT-OP-A Visit Information Start: 05/03/19 09:44 Freq: Status: Active Protocol: Document 05/21/19 12:46 LRN (Rec: 05/21/19 13:33 LRN [id number]) Out-Patient Physical Therapy Visit Information Visit Information Visit Type Treatment Note Visit Start Time 12:46 Visit Stop Time 13:36 Total Visit Minutes 50 Visit Number 3 Evaluation Information Evaluation Date 05/03/19 PT-OP-B Current Condition Start: 05/03/19 09:44 Freq: Status: Active Protocol: Document 05/16/19 11:15 AMH (Rec: 05/17/19 10:53 AMH [id number]) Current Condition History of Current Condition Onset Date March 2018 Kelley began experiencing hip pain Current Complaints severe anterior hip pain on the left and intermittent right sided hip pain History of Current Condition Pt reports she was diagnosed with avascular necrosis She had been getting injections for her bursa and it wasn't helping History of lupus x 6 years ago , she was on a high level of steroids and she has a history of smoking. She is 2 weeks post op left total hip replacement (05/04/2019). The right hip still needs to be scheduled out. Pt is ambulating with a fww with WBAT left hip. SHe understands her precautions of avoiding hip extension and ER Pt has 5 stairs up to her porch at her house with one railing. Treatment Goals Patient/Caregiver Goals Pt's goals include decreasing pain levels and return to being able to take care of her children without pain. Current Functional Impairments (Reported) Functional Limitations- Mobility/Gait Pt using FWW, gait feeling better after surgery, she has ambulated outside the house only 1 time since surgery Functional Limitations- Other bending and lifting activities are challanging PT-OP-C Subjective Start: 05/03/19 09:44 Freq: Status: Active Protocol: Document 05/21/19 12:46 LRN (Rec: 05/21/19 13:33 LRN [id number]) OP-PT Subjective Patient Comments Patient Comments Getting better every day. The R hip is starting to hurt more. PT-OP-F Manual Assessment Start: 05/03/19 09:44 Freq: Status: Active Protocol: Document 05/03/19 14:16 AMH (Rec: 05/03/19 14:27 AMH [email or web address]) Manual Assessments Soft Tissue Assessment Soft Tissue Mobility Assessment tightness of the lateral quads and ITB, muscle atrophy B PT-OP-G Mobility & Gait Start: 05/03/19 09:44 Freq: Status: Active Protocol: Document 05/16/19 11:15 AMH (Rec: 05/17/19 10:53 [facility] [id number]) OP Mobility Evaluation Bed Mobility Rolling able to roll IND but painful Supine to and from Sit IND Transfers Sit to Stand IND with use of FWW Bed to Chair Transfers IND with use of FWW OP Gait Assessment Gait Gait Assistance Required: Independent Distance (Feet) 350 Able to Maintain Weight Bearing Status Yes During Gait Gait Deviations General Gait Pattern Decreased Stride Length Factors Limiting Gait Function Factors Limiting Gait Function Decreased Strength,Limited Range of Motion,Pain PT-OP-J Posture/Palpation/Skin Start: 05/03/19 09:44 Freq: Status: Active Protocol: Document 05/03/19 14:16 AMH (Rec: 05/03/19 14:27 AMH [email or web address]) Palpation Assessment Location Two Palpation Location anterior hip and groin Palpation Findings Soft Tissue Tightness,Spasm, Muscle Guarding,Tenderness One Palpation Location tenderness over the lateral tronchanteric bursa B Palpation Findings Tenderness PT-OP-K Range of Motion Start: 05/03/19 09:44 Freq: Status: Active Protocol: Document 05/16/19 11:15 AMH (Rec: 05/17/19 10:53 [facility] [id number]) Hip Goniometric Range of Motion Hip Right Hip ROM WFL No Flexion w/Knee Flexed 125 Straight Leg Raise 70 Abduction 20 External Rotation 35 Left Hip ROM WFL No Flexion w/Knee Flexed 110 Straight Leg Raise 60 External Rotation 30 PT-OP-M Strength Start: 05/03/19 09:44 Freq: Status: Active Protocol: Document 05/16/19 11:15 AMH (Rec: 05/17/19 10:53 AMH [id number]) Hip Strength Hip Manual Muscle Testing Right Flexion (L2) 3 Fair Extension (S1) 3 Fair Abduction 2+ Poor+ External Rotation 3 Fair Left Flexion (L2) 2+ Poor+ Abduction 2+ Poor+ External Rotation 2+ Poor+ Comments extension was not retesed today secondary to s/p FRANKY on the left PT-OP-Q Treatments Start: 05/03/19 09:44 Freq: Status: Active Protocol: Document 05/21/19 12:46 LRN (Rec: 05/21/19 13:33 LRN [id number]) Therapeutic Exercises Supine Exercises LE Roll in/out Supine Exercise Name LE Roll in/neutral Reps/Minutes 15 x Comments Pt limited to no ER. TA Supine Exercise Name TA Reps/Minutes 10x Comments 10 sec hold. Cues to breath and isolate contraction from gluteals. supine AROM HIP ABDUCTION Supine Exercise Name Hip AB AROM Reps/Minutes 2 x 10 heel slides Supine Exercise Name heel slides Side left Reps/Minutes 2 x 10 quad sets Supine Exercise Name quad sets Side bilateral Reps/Minutes 15 reps holding 3 seconds each Sitting Exercises Knee flex/ext Sitting Exercise Name Knee Flex/Exty Side bilateral Reps/Minutes 15x Comments Moving legs together Standing Exercises standing hip abduction Standing Exercise Name standing hip abduction Side bilateral Equipment Used at the bars for UE support Reps/Minutes 2 x 15 reps standing side steps Standing Exercise Name standing side steps Side bilateral Reps/Minutes 4 xms length of parallel bars standing calf raises Standing Exercise Name standing calf raises Side bilateral Equipment Used bars for support Reps/Minutes 2 x 15 reps marches at the bars for support Standing Exercise Name standing marches Side bilateral Reps/Minutes 2 x 15 reps Manual Therapy Treatment Soft Tissue Mobilization L Hip AD Body Location L Hip AD tendon @ Pub Mobilization Type Trigger Point Release Intensity/Depth Superficial Body Position Hooklying PT-OP-R Modalities Start: 05/21/19 13:34 Freq: Status: Active Protocol: Document 05/21/19 12:46 LRN (Rec: 05/21/19 13:35 LRN [id number]) Hot Pack/Cold Pack Treatment Cold Pack Location L lateral and anterior hip joint Patient Position Hooklying Treatment Duration (minutes) 10 Patient Tolerance Good PT-OP-T Assessment and Plan Start: 05/03/19 09:44 Freq: Status: Active Protocol: Document 05/21/19 12:46 LRN (Rec: 05/21/19 13:33 LRN [id number]) Physical Therapy Assessment Goals One Impairment Decreased left hip ROM s/p FRANKY Short Term Goal (STG) Kelley has improved ROM of the left hip to WFL STG Duration 5 weeks Three Impairment limited walking distance to less than 2 blocks due to pain Short Term Goal (STG) Increase walking distance with FWW to 3-4 blocks with overall reduction in pain STG Duration 6 weeks Longterm Goal (LTG) With gait training Kelley is able to discontinue use of her walking and walking distance is increased to 20-30 minutes without a increase in pain levels Two Impairment Weakness of bilateral hips Short Term Goal (STG) Kelley is educated in preoperative exercises to begin following surgery STG Duration 1 day Longterm Goal (LTG) Kelley is seen following Left Total hip arthroplasty and tolerating a post op total hip strengthening program. 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 She tolerates exercise very well. Tight L hip AD's. Sustained pressure at Hip AD attachment site at pubic symphasis elicits L LBP that subsided a little with TrP treatment to hip AD's. Pt is progressing quite well and might be being too active to start. Physical Therapy Plan Frequency and Duration Frequency of Treatment 2x/Week Duration of Treatment 8 Plan of Care Start Date 05/16/19 Plan of Care End Date 07/11/19 Next Visit Focus/Plan Next Note Type Treatment Note Next Visit Plan Increase hip strengthening as tolerated within precautions for s/p anterior approach FRANKY. Continue to strengthen the right hip as well as Kelley will be having surgery on this side at a later date, gait training for community ambulation with fww and stair training
--- NOTE | 2019-12-17 13:46 | PT.OPDS ---
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) Encounter for other preprocedural examination (05/21/19) Visit Care Team Role Provider Type Ashley Fulton MD Family Provider Physician Primary Care Provider Specialty: CHIE[employer]ER Address: [address] [place] [address], [id number] Email: [email or web address] Randall Bender Attending Provider Non-Staff Specialty: Medical [address]: [address] [place] [address], [place], [address] Email: Visit Number Visit Number 3 Discharge Summary PT-OP-B Current Condition Start: 05/03/19 09:44 Freq: Status: Active Protocol: Document 05/16/19 11:15 AMH (Rec: 05/17/19 10:53 AMH [id number]) Current Condition History of Current Condition Onset Date March 2018 Kelley began experiencing hip pain Current Complaints severe anterior hip pain on the left and intermittent right sided hip pain History of Current Condition Pt reports she was diagnosed with avascular necrosis She had been getting injections for her bursa and it wasn't helping History of lupus x 6 years ago , she was on a high level of steroids and she has a history of smoking. She is 2 weeks post op left total hip replacement (05/04/2019). The right hip still needs to be scheduled out. Pt is ambulating with a fww with WBAT left hip. SHe understands her precautions of avoiding hip extension and ER Pt has 5 stairs up to her porch at her house with one railing. Treatment Goals Patient/Caregiver Goals Pt's goals include decreasing pain levels and return to being able to take care of her children without pain. Current Functional Impairments (Reported) Functional Limitations- Mobility/Gait Pt using FWW, gait feeling better after surgery, she has ambulated outside the house only 1 time since surgery Functional Limitations- Other bending and lifting activities are challanging PT-OP-C Subjective Start: 05/03/19 09:44 Freq: Status: Active Protocol: Document 05/21/19 12:46 LRN (Rec: 05/21/19 13:33 LRN [id number]) OP-PT Subjective Patient Comments Patient Comments Getting better every day. The R hip is starting to hurt more. PT-OP-F Manual Assessment Start: 05/03/19 09:44 Freq: Status: Active Protocol: Document 05/03/19 14:16 AMH (Rec: 05/03/19 14:27 AMH [email or web address]) Manual Assessments Soft Tissue Assessment Soft Tissue Mobility Assessment tightness of the lateral quads and ITB, muscle atrophy B PT-OP-G Mobility & Gait Start: 05/03/19 09:44 Freq: Status: Active Protocol: Document 05/16/19 11:15 AMH (Rec: 05/17/19 10:53 AMH [id number]) OP Mobility Evaluation Bed Mobility Rolling able to roll IND but painful Supine to and from Sit IND Transfers Sit to Stand IND with use of FWW Bed to Chair Transfers IND with use of FWW OP Gait Assessment Gait Gait Assistance Required: Independent Distance (Feet) 350 Able to Maintain Weight Bearing Status Yes During Gait Gait Deviations General Gait Pattern Decreased Stride Length Factors Limiting Gait Function Factors Limiting Gait Function Decreased Strength,Limited Range of Motion,Pain PT-OP-J Posture/Palpation/Skin Start: 05/03/19 09:44 Freq: Status: Active Protocol: Document 05/03/19 14:16 AMH (Rec: 05/03/19 14:27 AMH [email or web address]) Palpation Assessment Location Two Palpation Location anterior hip and groin Palpation Findings Soft Tissue Tightness,Spasm, Muscle Guarding,Tenderness One Palpation Location tenderness over the lateral tronchanteric bursa B Palpation Findings Tenderness PT-OP-K Range of Motion Start: 05/03/19 09:44 Freq: Status: Active Protocol: Document 05/16/19 11:15 AMH (Rec: 05/17/19 10:53 AMH [id number]) Hip Goniometric Range of Motion Hip Right Hip ROM WFL No Flexion w/Knee Flexed 125 Straight Leg Raise 70 Abduction 20 External Rotation 35 Left Hip ROM WFL No Flexion w/Knee Flexed 110 Straight Leg Raise 60 External Rotation 30 PT-OP-M Strength Start: 05/03/19 09:44 Freq: Status: Active Protocol: Document 05/16/19 11:15 AMH (Rec: 05/17/19 10:53 [facility] [id number]) Hip Strength Hip Manual Muscle Testing Right Flexion (L2) 3 Fair Extension (S1) 3 Fair Abduction 2+ Poor+ External Rotation 3 Fair Left Flexion (L2) 2+ Poor+ Abduction 2+ Poor+ External Rotation 2+ Poor+ Comments extension was not retesed today secondary to s/p FRANKY on the left PT-OP-T Assessment and Plan Start: 05/03/19 09:44 Freq: Status: Active Protocol: Document 12/17/19 13:45 [facility] (Rec: 12/17/19 13:46 [facility] [email or web address]) Physical Therapy Assessment Assessment Summary Assessment The patient has not been seen in PT since the covid 19 pandemic. She did not wish to continue PT at this time Physical Therapy Plan Discharge Physical Therapy Discharge Reasons No Longer Attending PT Discharge Comments Pt no longer attending PT due to the covid 19 pandemic
== END 2019-12-18 11:17 ==
LOC: PHYS 12:45
PROVIDERS: Family Provider Obstetrics & Gynecology; PCP Obstetrics & Gynecology; Visit Provider Orthopaedic Surgery
DX: M70.61 Trochanteric bursitis, right hip (principal); M70.62 Trochanteric bursitis, left hip; M87.052 Idiopathic aseptic necrosis of left femur; Z01.818 Encounter for other preprocedural examination
CPT/HCPCS: 97110; 97161; 97164

== ENCOUNTER → 2020-01-05 16:35 | Outpatient (CLI) | payer OTHER, SELFPAY | PROVIDERS: Family Provider Student in an Organized Health Care Education/Training Program; PCP Student in an Organized Health Care Education/Training Program; Visit Provider Nurse Practitioner | DX: R30.0 Dysuria (principal) | CPT/HCPCS: 87077; 87086 ==

== ENCOUNTER 2020-02-07 11:15 | Outpatient (RCR) | payer OTHER, SELFPAY ==
--- NOTE | 2020-01-29 16:17 | PT.OIE ---
Current Diagnoses Trochanteric bursitis, right hip (01/29/20) Trochanteric bursitis, left hip (01/29/20) Presence of artificial hip joint, bilateral (01/29/20) Past Medical History (Last Reviewed 01/05/20 @ 16:47 by ELBERT Adams) Fibromyalgia (Chronic ~2013) Lupus (Chronic ~2013) Visit Care Team Role Provider Type Jarrod Martinez MD Family Provider Physician Primary Care Provider Specialty: Internal Medicine Address: [address] [place] [address], [address], [address] Email: [email or web address] Randall Bender Attending Provider Non-Staff Referring Provider Specialty: Medical Address: [address] [place] [address], [id number] Email: Physical Therapy Initial Evaluation PT-OP-A Visit Information Start: 01/16/20 12:43 Freq: Status: Active Protocol: Document 01/29/20 14:30 AMB (Rec: 01/29/20 16:03 AMB [email or web address]) Out-Patient Physical Therapy Visit Information Visit Information Visit Type Initial Evaluation Visit Start Time 14:30 Visit Stop Time 15:15 Total Visit Minutes 45 Visit Number 1 PT-OP-B Current Condition Start: 01/16/20 12:43 Freq: Status: Active Protocol: Document 01/29/20 14:30 AMB (Rec: 01/29/20 16:03 AMB [email or web address]) Current Condition History of Current Condition Onset Date 11/05/19 Current Complaints L>R anterior hip pain History of Current Condition Kelley was diagnosed with avascular necrosis about a year ago and had anterior hip replacements at the left in April and on the right in October of this year. She also has fibromyalgia and lupus. She reports continued difficulty with coming up from bending forward- this is the biggest issue. Other things that are challenging are car transfers, floor transfers, extended standing (like in the kitchen), vacuuming. She does have a 2.5 year old that she takes care of at home. Treatment Goals Patient/Caregiver Goals Come back up from bending forward without pain Prior Functional Status Baseline Function- ADL's Independent Baseline Function- Mobility Independent Current Functional Impairments (Reported) Functional Limitations- ADL's See above- difficulty with higher level transfers, coming up from bending forward Personal Factors Other Personal Factors That May Effect Right knee pain, fibromyalgia, Therapy/Recovery lupus, headaches PT-OP-C Subjective Start: 01/16/20 12:43 Freq: Status: Active Protocol: Document 01/29/20 14:30 AMB (Rec: 01/29/20 16:03 AMB [email or web address]) Patient Questionnaires Lower Extremity Functional Scale LEFS Score 37 LEFS Impairment 40 to 59% Impaired (Score 32- 47) OP-PT Pain Assessment Comments Pain Comments 3/10 at right hip, 5/10 at left hip, 4/10 at right knee PT-OP-F Manual Assessment Start: 01/16/20 12:43 Freq: Status: Active Protocol: Document 01/29/20 14:30 AMB (Rec: 01/29/20 16:03 AMB [email or web address]) Manual Assessments Soft Tissue Assessment Soft Tissue Mobility Assessment Moderate teenderness at hip flexors bilaterally, mild tenderness at IT bands/ greater trochanters PT-OP-G Mobility & Gait Start: 01/16/20 12:43 Freq: Status: Active Protocol: Document 01/29/20 14:30 AMB (Rec: 01/29/20 16:03 AMB [email or web address]) OP Gait Assessment Comments Gait Comments General stiffness with sit to stand, antalgic gait with small step length, better after walking for a few seconds PT-OP-K Range of Motion Start: 01/16/20 12:43 Freq: Status: Active Protocol: Document 01/29/20 14:30 AMB (Rec: 01/29/20 16:03 AMB [email or web address]) Hip Goniometric Range of Motion Hip Right Hip ROM WFL No Straight Leg Raise 75 Internal Rotation 25 External Rotation 45 Left Hip ROM WFL No Straight Leg Raise 65 Internal Rotation 10 External Rotation 40 PT-OP-M Strength Start: 01/16/20 12:43 Freq: Status: Active Protocol: Document 01/29/20 14:30 AMB (Rec: 01/29/20 16:03 AMB [email or web address]) Hip Strength Hip Manual Muscle Testing Right Flexion (L2) 3+ Fair+ Extension (S1) 3+ Fair+ Abduction 4 Good Left Flexion (L2) 3+ Fair+ Extension (S1) 3 Fair Abduction 4 Good PT-OP-Q Treatments Start: 01/16/20 12:43 Freq: Status: Active Protocol: Document 01/29/20 14:30 AMB (Rec: 01/29/20 16:03 AMB [email or web address]) Therapeutic Exercises Supine Exercises 1 Supine Exercise Name bridges Side bilateral Reps/Minutes 10 PT-OP-T Assessment and Plan Start: 01/16/20 12:43 Freq: Status: Active Protocol: Document 01/29/20 14:30 AMB (Rec: 01/29/20 16:03 AMB [email or web address]) Physical Therapy Assessment Rehab Potential Rehabilitation Potential Good Evaluation Complexity Number of Personal Factors/Comorbidities 3 or More Number of Body Systems Impaired 4 or More Clinical Presentation at Evaluation Evolving Impairments Impairments Activity Tolerance,Functional Mobility,Gait,Pain,ROM, Strength Goals One Impairment Functional activities Short Term Goal (STG) Kelley will perform a floor transfer with 3/10 hip pain or less. STG Duration 4 weeks Half-Way Goal (LTG) Kelley will stand up from bending forward with hip pain of 3/10 or less. LTG Duration 8 weeks Three Impairment Hip Strength Short Term Goal (STG) Kelley will improve her hip strength to 4/5 in all planes. STG Duration 4 weeks Half-Way Goal (LTG) Kelley will improve her hip strength so that she can vacuum her home without hip pain. LTG Duration 8 weeks Assessment Summary Assessment Kelley attends PT with L>R anterior hip/groin pain s/p anterior approach FRANKY for avascular necrosis. She also reports some lateral hip pain. She states that the hip pain is not as sharp as it was prior to surgery, but it continues to be in the same spot. She presented with tightness in hip rotation but fairly flexible in hip flexors . Tender to palpation at hip flexors and weak with hip flexion extension. She will benefit from physical therapy to appropriate strengthen and stretch her hip so that she can return to bending, standing, and higher level transfers with less pain. Physical Therapy Plan Frequency and Duration Frequency of Treatment 2x/Week Duration of Treatment 8 weeks Plan of Care Start Date 01/29/20 Plan of Care End Date 03/25/20 Therapeutic Interventions Therapeutic Interventions Gait Training,Home Exercise Program,Manual Therapy, Neuromuscular Re-education, Self-Care/Home Management, Therapeutic Activities, Therapeutic Exercises Modalities Cold Pack/Ice Massage,Electric Stimulation,Hot Packs Next Visit Focus/Plan Next Note Type Treatment Note Next Visit Plan Progress HEP: hip flexor strengthening/stretching that doesn't flare sx, progress glute strengthening, IT band stretch
--- NOTE | 2020-01-29 16:19 | PT.OPPOC ---
Physical, Occupational & Speech Therapy At [facility] Current Diagnoses Trochanteric bursitis, right hip (01/29/20) Trochanteric bursitis, left hip (01/29/20) Presence of artificial hip joint, bilateral (01/29/20) Visit Care Team Role Provider Type Jarrod Martinez MD Family Provider Physician Primary Care Provider Specialty: Internal Medicine Address: [address] [place] [address], [address], [address] Email: [email or web address] Randall Bender Attending Provider Non-Staff Referring Provider Specialty: Medical Address: [facility] [address], [place], [address] Email: Plan Of Care PT-OP-T Assessment and Plan Start: 01/16/20 12:43 Freq: Status: Active Protocol: Document 01/29/20 14:30 AMB (Rec: 01/29/20 16:03 AMB [email or web address]) Physical Therapy Assessment Rehab Potential Rehabilitation Potential Good Evaluation Complexity Number of Personal Factors/Comorbidities 3 or More Number of Body Systems Impaired 4 or More Clinical Presentation at Evaluation Evolving Impairments Impairments Activity Tolerance,Functional Mobility,Gait,Pain,ROM, Strength Goals One Impairment Functional activities Short Term Goal (STG) Kelley will perform a floor transfer with 3/10 hip pain or less. STG Duration 4 weeks Waitstaff Captain Goal (LTG) Kelley will stand up from bending forward with hip pain of 3/10 or less. LTG Duration 8 weeks Three Impairment Hip Strength Short Term Goal (STG) Kelley will improve her hip strength to 4/5 in all planes. STG Duration 4 weeks Usp Goal (LTG) Kelley will improve her hip strength so that she can vacuum her home without hip pain. LTG Duration 8 weeks Assessment Summary Assessment Kelley attends PT with L>R anterior hip/groin pain s/p anterior approach FRANKY for avascular necrosis. She also reports some lateral hip pain. She states that the hip pain is not as sharp as it was prior to surgery, but it continues to be in the same spot. She presented with tightness in hip rotation but fairly flexible in hip flexors . Tender to palpation at hip flexors and weak with hip flexion extension. She will benefit from physical therapy to appropriate strengthen and stretch her hip so that she can return to bending, standing, and higher level transfers with less pain. Physical Therapy Plan Frequency and Duration Frequency of Treatment 2x/Week Duration of Treatment 8 weeks Plan of Care Start Date 01/29/20 Plan of Care End Date 03/25/20 Therapeutic Interventions Therapeutic Interventions Gait Training,Home Exercise Program,Manual Therapy, Neuromuscular Re-education, Self-Care/Home Management, Therapeutic Activities, Therapeutic Exercises Modalities Cold Pack/Ice Massage,Electric Stimulation,Hot Packs Next Visit Focus/Plan Next Note Type Treatment Note Next Visit Plan Progress HEP: hip flexor strengthening/stretching that doesn't flare sx, progress glute strengthening, IT band stretch Plan of Care Dates Plan of Care Start Date 01/29/20 Plan of Care End Date 03/25/20 Electronically Signed by: Abigail Acosta, PT 01/29/20 3047 Please Sign and Return: I have reviewed this Plan of Care and certify that the skilled therapy services above are required to meet the patient?s needs. Physician Signature Date Printed Name and Credentials Clinical Instructor Signature Printed Name and Credentials
--- NOTE | 2020-01-31 15:40 | PT.OTN ---
Current Diagnoses Trochanteric bursitis, right hip (01/31/20) Trochanteric bursitis, left hip (01/31/20) Presence of artificial hip joint, bilateral (01/31/20) Physical Therapy Treatment Note PT-OP-A Visit Information Start: 01/16/20 12:43 Freq: Status: Active Protocol: Document 01/31/20 14:30 AMB (Rec: 01/31/20 15:39 AMB [email or web address]) Out-Patient Physical Therapy Visit Information Visit Information Visit Type Treatment Note Visit Start Time 14:30 Visit Stop Time 15:20 Total Visit Minutes 50 Visit Number 2 PT-OP-B Current Condition Start: 01/16/20 12:43 Freq: Status: Active Protocol: Document 01/29/20 14:30 AMB (Rec: 01/29/20 16:03 AMB [email or web address]) Current Condition History of Current Condition Onset Date 11/05/19 Current Complaints L>R anterior hip pain History of Current Condition Kelley was diagnosed with avascular necrosis about a year ago and had anterior hip replacements at the left in April and on the right in October of this year. She also has fibromyalgia and lupus. She reports continued difficulty with coming up from bending forward- this is the biggest issue. Other things that are challenging are car transfers, floor transfers, extended standing (like in the kitchen), vacuuming. She does have a 2.5 year old that she takes care of at home. Treatment Goals Patient/Caregiver Goals Come back up from bending forward without pain Prior Functional Status Baseline Function- ADL's Independent Baseline Function- Mobility Independent Current Functional Impairments (Reported) Functional Limitations- ADL's See above- difficulty with higher level transfers, coming up from bending forward Personal Factors Other Personal Factors That May Effect Right knee pain, fibromyalgia, Therapy/Recovery lupus, headaches PT-OP-C Subjective Start: 01/16/20 12:43 Freq: Status: Active Protocol: Document 01/31/20 14:30 AMB (Rec: 01/31/20 15:39 AMB [email or web address]) OP-PT Subjective Patient Comments Patient Comments Pt was a little sore with the exercises but overall doing ok today. Thinks that she bends over instead of squatting because of weakness. PT-OP-F Manual Assessment Start: 01/16/20 12:43 Freq: Status: Active Protocol: Document 01/29/20 14:30 AMB (Rec: 01/29/20 16:03 AMB [email or web address]) Manual Assessments Soft Tissue Assessment Soft Tissue Mobility Assessment Moderate teenderness at hip flexors bilaterally, mild tenderness at IT bands/ greater trochanters PT-OP-G Mobility & Gait Start: 01/16/20 12:43 Freq: Status: Active Protocol: Document 01/29/20 14:30 AMB (Rec: 01/29/20 16:03 AMB [email or web address]) OP Gait Assessment Comments Gait Comments General stiffness with sit to stand, antalgic gait with small step length, better after walking for a few seconds PT-OP-K Range of Motion Start: 01/16/20 12:43 Freq: Status: Active Protocol: Document 01/29/20 14:30 AMB (Rec: 01/29/20 16:03 AMB [email or web address]) Hip Goniometric Range of Motion Hip Right Hip ROM WFL No Straight Leg Raise 75 Internal Rotation 25 External Rotation 45 Left Hip ROM WFL No Straight Leg Raise 65 Internal Rotation 10 External Rotation 40 PT-OP-M Strength Start: 01/16/20 12:43 Freq: Status: Active Protocol: Document 01/29/20 14:30 AMB (Rec: 01/29/20 16:03 AMB [email or web address]) Hip Strength Hip Manual Muscle Testing Right Flexion (L2) 3+ Fair+ Extension (S1) 3+ Fair+ Abduction 4 Good Left Flexion (L2) 3+ Fair+ Extension (S1) 3 Fair Abduction 4 Good PT-OP-Q Treatments Start: 01/16/20 12:43 Freq: Status: Active Protocol: Document 01/31/20 14:30 AMB (Rec: 01/31/20 15:39 AMB [email or web address]) Therapeutic Exercises Supine Exercises 3 Supine Exercise Name lower trunk rotation Reps/Minutes 30x2 2 Supine Exercise Name hip flexor stretch Reps/Minutes 30x2 Comments off table in supine, then prone 1 Supine Exercise Name bridges Side bilateral Reps/Minutes 10 TA Supine Exercise Name with SLR Reps/Minutes 10 Sidelying Exercises 1 Sidelying Exercise Name clamshells Resistance AROM Reps/Minutes 2x10 Standing Exercises 1 Standing Exercise Name sit to stand Reps/Minutes 10 Comments with ball between knees Manual Therapy Treatment Taping 1 Body Location R knee Type of Tape Kinesio Tape Comments Y for patellar alignment, I over patellar tendon PT-OP-T Assessment and Plan Start: 01/16/20 12:43 Freq: Status: Active Protocol: Document 01/31/20 14:30 AMB (Rec: 01/31/20 15:39 AMB [email or web address]) Physical Therapy Assessment Assessment Summary Assessment Kelley tolerated exercises well today, but right knee pain does limit her. She did have pain with palpation over patellar tendon, but also reports lateral knee pain at IT band insertion and popliteal pain at times. Physical Therapy Plan Next Visit Focus/Plan Next Note Type Treatment Note Next Visit Plan Review hip flexor strengthening/stretching that doesn't flare sx, progress glute strengthening, start IT band stretch
--- NOTE | 2020-02-07 11:15 | PT.OTN ---
Current Diagnoses Trochanteric bursitis, right hip (02/07/20) Trochanteric bursitis, left hip (02/07/20) Presence of artificial hip joint, bilateral (02/07/20) Physical Therapy Treatment Note PT-OP-A Visit Information Start: 01/16/20 12:43 Freq: Status: Active Protocol: Document 02/07/20 11:15 AMH (Rec: 02/10/20 16:01 AMH [email or web address]) Out-Patient Physical Therapy Visit Information Visit Information Visit Type Treatment Note Visit Start Time 11:15 Visit Stop Time 12:00 Total Visit Minutes 45 Visit Number 3 PT-OP-B Current Condition Start: 01/16/20 12:43 Freq: Status: Active Protocol: Document 01/29/20 14:30 AMB (Rec: 01/29/20 16:03 AMB [email or web address]) Current Condition History of Current Condition Onset Date 11/05/19 Current Complaints L>R anterior hip pain History of Current Condition Kelley was diagnosed with avascular necrosis about a year ago and had anterior hip replacements at the left in April and on the right in October of this year. She also has fibromyalgia and lupus. She reports continued difficulty with coming up from bending forward- this is the biggest issue. Other things that are challenging are car transfers, floor transfers, extended standing (like in the kitchen), vacuuming. She does have a 2.5 year old that she takes care of at home. Treatment Goals Patient/Caregiver Goals Come back up from bending forward without pain Prior Functional Status Baseline Function- ADL's Independent Baseline Function- Mobility Independent Current Functional Impairments (Reported) Functional Limitations- ADL's See above- difficulty with higher level transfers, coming up from bending forward Personal Factors Other Personal Factors That May Effect Right knee pain, fibromyalgia, Therapy/Recovery lupus, headaches PT-OP-C Subjective Start: 01/16/20 12:43 Freq: Status: Active Protocol: Document 02/07/20 11:15 AMH (Rec: 02/10/20 16:01 AMH [email or web address]) OP-PT Subjective Patient Comments Patient Comments Kelley notes she is doing okay with her hip but is complaining of ongoing right sided knee pain with gait PT-OP-F Manual Assessment Start: 01/16/20 12:43 Freq: Status: Active Protocol: Document 01/29/20 14:30 AMB (Rec: 01/29/20 16:03 AMB [email or web address]) Manual Assessments Soft Tissue Assessment Soft Tissue Mobility Assessment Moderate teenderness at hip flexors bilaterally, mild tenderness at IT bands/ greater trochanters PT-OP-G Mobility & Gait Start: 01/16/20 12:43 Freq: Status: Active Protocol: Document 01/29/20 14:30 AMB (Rec: 01/29/20 16:03 AMB [email or web address]) OP Gait Assessment Comments Gait Comments General stiffness with sit to stand, antalgic gait with small step length, better after walking for a few seconds PT-OP-K Range of Motion Start: 01/16/20 12:43 Freq: Status: Active Protocol: Document 01/29/20 14:30 AMB (Rec: 01/29/20 16:03 AMB [email or web address]) Hip Goniometric Range of Motion Hip Right Hip ROM WFL No Straight Leg Raise 75 Internal Rotation 25 External Rotation 45 Left Hip ROM WFL No Straight Leg Raise 65 Internal Rotation 10 External Rotation 40 PT-OP-M Strength Start: 01/16/20 12:43 Freq: Status: Active Protocol: Document 01/29/20 14:30 AMB (Rec: 01/29/20 16:03 AMB [email or web address]) Hip Strength Hip Manual Muscle Testing Right Flexion (L2) 3+ Fair+ Extension (S1) 3+ Fair+ Abduction 4 Good Left Flexion (L2) 3+ Fair+ Extension (S1) 3 Fair Abduction 4 Good PT-OP-Q Treatments Start: 01/16/20 12:43 Freq: Status: Active Protocol: Document 02/07/20 11:15 AMH (Rec: 02/10/20 16:01 AMH [email or web address]) Cardio Equipment Recumbent Elliptical ([employer]) Duration (Minutes) 5 Resistance 1 Therapeutic Exercises Supine Exercises TA with marches Supine Exercise Name TA with marches Reps/Minutes 15 reps x 2 iliopsoas stretch in luis test position Supine Exercise Name iliopsoas stretch in luis test position Reps/Minutes 2 reps 45 seconds each Comments pt tolerated well 3 Supine Exercise Name lower trunk rotation Reps/Minutes 30x2 2 Supine Exercise Name hip flexor stretch Reps/Minutes 30x2 Comments off table in supine, then prone 1 Supine Exercise Name bridges Side bilateral Reps/Minutes 10 TA Supine Exercise Name SLR Reps/Minutes x 10 reps Comments needed scar tissue release 1st due to pain quad sets Supine Exercise Name quad sets Reps/Minutes x 10 reps Sitting Exercises seated iliopsoas stretch Sitting Exercise Name pt shown a seated hip flexor stretch Reps/Minutes 2 reps 45 sec- 1 min hold Standing Exercises 1 Standing Exercise Name sit to stand Reps/Minutes 10 Comments with ball between knees standing side steps Standing Exercise Name standing side steps Side bilateral Reps/Minutes 4 xms length of parallel bars standing calf raises Standing Exercise Name standing calf raises Side bilateral Equipment Used bars for support Reps/Minutes 2 x 15 reps Manual Therapy Treatment Soft Tissue Mobilization scar tissue massage over the right hip incision Body Location scar tissue massage over the right hip anterior incision Body Position supine with pillows under knees Comments good tolerance for scar tissue mobilization and pt was educated in self scar tissue massage. PT-OP-T Assessment and Plan Start: 01/16/20 12:43 Freq: Status: Active Protocol: Document 02/07/20 11:15 AMH (Rec: 02/10/20 16:01 AMH [email or web address]) Physical Therapy Assessment Assessment Summary Assessment Kelley is still limited with right knee pain. I did mention to her that if she is limping due to pain using her cane for longer distances may help her knee. She tolerated quad and iliopsoas stretching and was shown a seated hip flexor stretch as well as in luis test position. She had pain with SLR today so I worked on some scar release over hip and this seemed to help her do her SLR. Physical Therapy Plan Frequency and Duration Frequency of Treatment 2x/Week Duration of Treatment 8 weeks Plan of Care Start Date 01/29/20 Plan of Care End Date 03/25/20 Therapeutic Interventions Therapeutic Interventions Gait Training,Home Exercise Program,Manual Therapy, Neuromuscular Re-education, Self-Care/Home Management, Therapeutic Activities, Therapeutic Exercises Modalities Cold Pack/Ice Massage,Electric Stimulation,Hot Packs Next Visit Focus/Plan Next Note Type Treatment Note Next Visit Plan Continue to progress strengthening as well as stretching for the iliopsoas and ITB, work on hip hinge on the left as Kelley is still having difficulty with this from her last FRANKY.
--- NOTE | 2020-03-11 10:17 | PT.OPDS ---
Current Diagnoses Trochanteric bursitis, right hip (02/07/20) Trochanteric bursitis, left hip (02/07/20) Presence of artificial hip joint, bilateral (02/07/20) Visit Care Team Role Provider Type Jarrod Martinez MD Family Provider Physician Primary Care Provider Specialty: Internal Medicine Address: [address] [place] [address], [place] [address], [place], [address] Email: [email or web address] Attending Provider Non-Staff Referring Provider Specialty: Medical Address: [address] [place] [address], [place], [address] Email: Visit Number Visit Number 3 Discharge Summary PT-OP-B Current Condition Start: 01/16/20 12:43 Freq: Status: Active Protocol: Document 01/29/20 14:30 AMB (Rec: 01/29/20 16:03 AMB [email or web address]) Current Condition History of Current Condition Onset Date 11/05/19 Current Complaints L>R anterior hip pain History of Current Condition Kelley was diagnosed with avascular necrosis about a year ago and had anterior hip replacements at the left in April and on the right in October of this year. She also has fibromyalgia and lupus. She reports continued difficulty with coming up from bending forward- this is the biggest issue. Other things that are challenging are car transfers, floor transfers, extended standing (like in the kitchen), vacuuming. She does have a 2.5 year old that she takes care of at home. Treatment Goals Patient/Caregiver Goals Come back up from bending forward without pain Prior Functional Status Baseline Function- ADL's Independent Baseline Function- Mobility Independent Current Functional Impairments (Reported) Functional Limitations- ADL's See above- difficulty with higher level transfers, coming up from bending forward Personal Factors Other Personal Factors That May Effect Right knee pain, fibromyalgia, Therapy/Recovery lupus, headaches PT-OP-C Subjective Start: 01/16/20 12:43 Freq: Status: Active Protocol: Document 02/07/20 11:15 AMH (Rec: 02/10/20 16:01 AMH [email or web address]) OP-PT Subjective Patient Comments Patient Comments Kelley notes she is doing okay with her hip but is complaining of ongoing right sided knee pain with gait PT-OP-F Manual Assessment Start: 01/16/20 12:43 Freq: Status: Active Protocol: Document 01/29/20 14:30 AMB (Rec: 01/29/20 16:03 AMB [email or web address]) Manual Assessments Soft Tissue Assessment Soft Tissue Mobility Assessment Moderate teenderness at hip flexors bilaterally, mild tenderness at IT bands/ greater trochanters PT-OP-G Mobility & Gait Start: 01/16/20 12:43 Freq: Status: Active Protocol: Document 01/29/20 14:30 AMB (Rec: 01/29/20 16:03 AMB [email or web address]) OP Gait Assessment Comments Gait Comments General stiffness with sit to stand, antalgic gait with small step length, better after walking for a few seconds PT-OP-K Range of Motion Start: 01/16/20 12:43 Freq: Status: Active Protocol: Document 01/29/20 14:30 AMB (Rec: 01/29/20 16:03 AMB [email or web address]) Hip Goniometric Range of Motion Hip Right Hip ROM WFL No Straight Leg Raise 75 Internal Rotation 25 External Rotation 45 Left Hip ROM WFL No Straight Leg Raise 65 Internal Rotation 10 External Rotation 40 PT-OP-M Strength Start: 01/16/20 12:43 Freq: Status: Active Protocol: Document 01/29/20 14:30 AMB (Rec: 01/29/20 16:03 AMB [email or web address]) Hip Strength Hip Manual Muscle Testing Right Flexion (L2) 3+ Fair+ Extension (S1) 3+ Fair+ Abduction 4 Good Left Flexion (L2) 3+ Fair+ Extension (S1) 3 Fair Abduction 4 Good PT-OP-T Assessment and Plan Start: 01/16/20 12:43 Freq: Status: Active Protocol: Document 03/11/20 10:14 AMH (Rec: 03/11/20 10:17 AMH [email or web address]) Physical Therapy Assessment Goals One Impairment Functional activities Short Term Goal (STG) Kelley will perform a floor transfer with 3/10 hip pain or less. Some progress STG Duration 4 weeks Cardiac Nurse Practitioner Goal (LTG) Kelley will stand up from bending forward with hip pain of 3/10 or less. LTG Duration 8 weeks Three Impairment Hip Strength Short Term Goal (STG) Kelley will improve her hip strength to 4/5 in all planes. Some progress STG Duration 4 weeks Fdc Goal (LTG) Kelley will improve her hip strength so that she can vacuum her home without hip pain. LTG Duration 8 weeks Two Impairment Weakness of bilateral hips Short Term Goal (STG) Kelley is educated in preoperative exercises to begin following surgery Goal met Assessment Summary Assessment Kelley called in to tell us she did not have childcare and was not able to continue PT at this time. She will be discharged from PT at this time Physical Therapy Plan Discharge Physical Therapy Discharge Reasons Patient Request Discharge Comments Pt request DC due to not having childcare
== END 2020-04-10 08:31 ==
LOC: PHYS 11:15
PROVIDERS: Family Provider Student in an Organized Health Care Education/Training Program; PCP Student in an Organized Health Care Education/Training Program; Referring Provider Orthopaedic Surgery; Visit Provider Orthopaedic Surgery
DX: M70.61 Trochanteric bursitis, right hip (principal); M70.62 Trochanteric bursitis, left hip; Z96.643 Presence of artificial hip joint, bilateral
CPT/HCPCS: 97110; 97140; 97162

== ENCOUNTER → 2020-03-08 10:52 | Outpatient (CLI) | payer OTHER, SELFPAY ==
[2020-03-08 11:17] LABS: RBC Urine None Seen (0-5/HPF)
[2020-03-08 11:27] LABS: Appearance Urine UA CLEAR; Bilirubin Urine UA NEGATIVE (NEGATIVE); Color Urine UA YELLOW; Glucose Urine UA NEGATIVE (Negative); Ketones Urine UA NEGATIVE (NEGATIVE); Leukocyte Esterase Urine UA TRACE (NEGATIVE); Nitrite Urine UA POSITIVE (Negative); Occult Blood Urine UA NEGATIVE (Negative); Protein Urine UA 2+ (Negative); Specific Gravity Urine UA 1.025 (1.000-1.035); Urobilinogen Urine UA 0.2 E.U./dL (0.2)
[2020-03-08 11:35] LABS: Influenza A - CEPHEID Flu A NEGATIVE (NEGATIVE)
[2020-03-08 11:36] LABS: COVID19 -Nasal RAPID Negative (Negative)
[2020-03-08 11:36] LABS: Influenza B - CEPHEID Flu B NEGATIVE (NEGATIVE)
[2020-03-08 11:40] LABS: Bacteria Urine Many (>30); Culture Indicated Urine Specimen Cultured; Squamous Epithelial Cell Urine 0-1 /HPF (0-5/HPF); WBC Urine 30-100/HPF (0-5/HPF)
== END ==
PROVIDERS: Family Provider Student in an Organized Health Care Education/Training Program; PCP Student in an Organized Health Care Education/Training Program; Visit Provider Nurse Practitioner
DX: Z11.59 Encounter for screening for other viral diseases (principal); R52 Pain, unspecified; R30.9 Painful micturition, unspecified
CPT/HCPCS: 81001; 87077; 87086; 87186; 87502; 87635

== ENCOUNTER → 2020-05-17 16:38 | Outpatient (CLI) | payer OTHER, SELFPAY ==
[2020-05-18 22:29] LABS: Pregnancy Test Urine Negative (Negative)
== END ==
PROVIDERS: Family Provider Student in an Organized Health Care Education/Training Program; PCP Student in an Organized Health Care Education/Training Program; Visit Provider Nurse Practitioner
DX: N34.3 Urethral syndrome, unspecified (principal); N12 Tubulo-interstitial nephritis, not specified as acute or chronic
CPT/HCPCS: 81025; 87077; 87086; 87186

== ENCOUNTER → 2020-07-02 10:54 | Outpatient (CLI) | payer OTHER, SELFPAY ==
[2020-07-02 12:04] LABS: Reticulocyte Count, Percent 1.2 % (1.06-2.63)
[2020-07-02 12:07] LABS: Hematocrit 28.7 % (36-46); Hemoglobin 8.5 g/dL (12.0-16.0); Mean Corpuscular HGB Conc 29.7 % (30-36); Mean Corpuscular Hemoglobin 19.2 PG (26-34); Mean Corpuscular Volume 64.4 fL (80-100); Platelet Count 474 X10^3/uL (150-400); Red Blood Cell Count 4.45 X10^6/uL (4.0-5.2); Red Cell Distribution Width 15.8 % (11.6-14.8); White Blood Cell Count 4.1 X10^3/uL (4.5-11.0)
[2020-07-02 12:32] LABS: HEMOLYSIS < 15 (0-50); Iron 13 ug/dL (37-170)
[2020-07-02 12:43] LABS: Percent Iron Saturation 3 % (15-50); Total Iron Binding Capacity 415 ug/dL (265-497); Transferrin 344 mg/dL (206-381)
[2020-07-02 13:12] LABS: Ferritin 6 ng/mL (6-137)
[2020-07-02 13:43] LABS: Folate > 20.0 ng/mL (2.76-20.0); Vitamin B12 688 pg/mL (239-931)
== END ==
PROVIDERS: Family Provider Student in an Organized Health Care Education/Training Program; PCP Student in an Organized Health Care Education/Training Program; Referring Provider Student in an Organized Health Care Education/Training Program; Visit Provider Student in an Organized Health Care Education/Training Program
DX: D50.9 Iron deficiency anemia, unspecified (principal)
CPT/HCPCS: 36415; 82607; 82728; 82746; 83540; 83550; 85027; 85045

== ENCOUNTER → 2020-09-30 16:20 | Outpatient (CLI) | payer OTHER, SELFPAY ==
[2020-09-30 17:20] LABS: Reticulocyte Count, Percent 0.9 % (1.06-2.63)
[2020-09-30 17:22] LABS: Basophils Absolute Auto 0 /uL (0-100); Basophils Percent Auto 0.6 % (0-2); Eosinophils Absolute Auto 400 /uL (0-450); Eosinophils Percent Auto 6.9 % (2-4); Hematocrit 38.4 % (36-46); Hemoglobin 12.6 g/dL (12.0-16.0); Lymphocytes Absolute Auto 1800 /uL (1100-4500); Lymphocytes Percent Auto 31.2 % (25-40); Mean Corpuscular HGB Conc 32.7 % (30-36); Mean Corpuscular Hemoglobin 25.7 PG (26-34); Mean Corpuscular Volume 78.5 fL (80-100); Monocytes Absolute Auto 500 /uL (0-900); Monocytes Percent Auto 8.7 % (3-14); Neutrophils Absolute Auto 3000 /uL (1500-7000); Neutrophils Percent Auto 52.6 % (50-75); Platelet Count 260 X10^3/uL (150-400); Red Blood Cell Count 4.89 X10^6/uL (4.0-5.2); Red Cell Distribution Width 24.3 % (11.6-14.8); White Blood Cell Count 5.7 X10^3/uL (4.5-11.0)
[2020-09-30 17:28] LABS: Add Manual Diff / Slide Review SLIDE REVIEW
[2020-09-30 18:04] LABS: HEMOLYSIS < 15 (0-50); Iron 38 ug/dL (37-170)
[2020-09-30 18:16] LABS: Percent Iron Saturation 12 % (15-50); Total Iron Binding Capacity 316 ug/dL (265-497); Transferrin 239 mg/dL (206-381)
[2020-09-30 18:52] LABS: Anisocytosis 1+
== END ==
PROVIDERS: Family Provider Student in an Organized Health Care Education/Training Program; PCP Student in an Organized Health Care Education/Training Program; Referring Provider Student in an Organized Health Care Education/Training Program; Visit Provider Student in an Organized Health Care Education/Training Program
DX: E61.1 Iron deficiency (principal)
CPT/HCPCS: 36415; 83540; 83550; 85025; 85045

== ENCOUNTER → 2020-12-17 16:27 | Outpatient (CLI) | payer OTHER, SELFPAY ==
[2020-12-17 17:47] LABS: Appearance Urine UA CLEAR; Bilirubin Urine UA NEGATIVE (NEGATIVE); Color Urine UA YELLOW; Glucose Urine UA NEGATIVE (Negative); Ketones Urine UA TRACE (NEGATIVE); Leukocyte Esterase Urine UA NEGATIVE (NEGATIVE); Nitrite Urine UA NEGATIVE (Negative); Occult Blood Urine UA NEGATIVE (Negative); Protein Urine UA TRACE (Negative); Specific Gravity Urine UA >=1.030 (1.000-1.035); Urobilinogen Urine UA 0.2 E.U./dL (0.2)
[2020-12-17 17:49] LABS: pH Urine UA 5.5 (4.5-8.0)
[2020-12-17 18:16] LABS: Add Manual Diff / Slide Review NO; Basophils Absolute Auto 0 /uL (0-100); Basophils Percent Auto 0.2 % (0-2); Eosinophils Absolute Auto 0 /uL (0-450); Eosinophils Percent Auto 0.6 % (2-4); Hemoglobin 12.4 g/dL (12.0-16.0); Lymphocytes Absolute Auto 1300 /uL (1100-4500); Lymphocytes Percent Auto 20.8 % (25-40); Mean Corpuscular HGB Conc 33.5 % (30-36); Mean Corpuscular Hemoglobin 27.7 PG (26-34); Mean Corpuscular Volume 82.7 fL (80-100); Monocytes Absolute Auto 400 /uL (0-900); Monocytes Percent Auto 7.2 % (3-14); Neutrophils Absolute Auto 4500 /uL (1500-7000); Neutrophils Percent Auto 71.2 % (50-75); Platelet Count 267 X10^3/uL (150-400); Red Blood Cell Count 4.47 X10^6/uL (4.0-5.2); Red Cell Distribution Width 13.8 % (11.6-14.8); White Blood Cell Count 6.2 X10^3/uL (4.5-11.0)
[2020-12-17 19:07] LABS: Hepatitis B Surface Antigen NEGATIVE s/c (NEGATIVE); Rubella Antibody IgG 12.6 IU/mL (>15)
[2020-12-17 19:26] LABS: HIV 1 & 2 Ab/Ag 4th Gen Combo NEGATIVE (NEGATIVE); Hep C Virus Ab w/Reflex Quant NEGATIVE s/c (NEGATIVE)
[2020-12-18 09:34] LABS: RPR Screen Non Reactive (Non Reactive); Varicella IgG Antibody 171 index (Immune >165)
== END ==
PROVIDERS: Family Provider Student in an Organized Health Care Education/Training Program; PCP Student in an Organized Health Care Education/Training Program; Referring Provider Obstetrics & Gynecology; Visit Provider Obstetrics & Gynecology
DX: O09.521 Supervision of elderly multigravida, first trimester (principal); Z34.81 Encounter for supervision of other normal pregnancy, first trimester; Z34.90 Encounter for supervision of normal pregnancy, unspecified, unspecified trimester
CPT/HCPCS: 36415; 80055; 81003; 81420; 86787; 86803; 86850; 86900; 86901; 87086; 87389

== ENCOUNTER → 2021-01-07 15:37 | Outpatient (CLI) | payer OTHER, SELFPAY ==
[2021-01-09 19:07] LABS: AFP Value 34.4 ng/mL (.); Gest Age on Col Date 16.9 weeks (.); Insulin Dep Diabetes No (.); OSBR Risk 1IN 10000 (.); Results Report (.); Test Results *Screen Negative* (.)
== END ==
PROVIDERS: Family Provider Student in an Organized Health Care Education/Training Program; PCP Student in an Organized Health Care Education/Training Program; Referring Provider Obstetrics & Gynecology; Visit Provider Obstetrics & Gynecology
DX: Z34.82 Encounter for supervision of other normal pregnancy, second trimester (principal); Z3A.17 17 weeks gestation of pregnancy
CPT/HCPCS: 36415; 82105

== ENCOUNTER → 2021-02-05 12:48 | Outpatient (CLI) | payer OTHER, SELFPAY ==
--- NOTE | 2021-02-05 12:49 | DI.US.S_ITS ---
PROCEDURE: US OB >= 14 WEEKS FETUS INDICATIONS: ANATOMY OUTSIDE/PRIOR DATING DATA: Last menstrual period (LMP): Unknown. LMP-based estimated date of delivery (SLICK): Unknown. First dating scan (date and location): 11/12/2020. Estimated date of delivery (SLICK) from first dating scan: 06/16/2021. TECHNIQUE: Real-time scanning was performed of the fetus, with image documentation and biometric measurements. COMPARISON: [facility], , OB >= 14 WEEKS FETUS, 01/07/2021, 15:32. FINDINGS: General: A single living intrauterine gestation is present. Presentation: Vertex Placenta: Placental position is posterior, without vasile previa. Lower edge of the placenta is seen 1.7 cm from internal os. Amniotic fluid index: 11.2 cm, normal range is 5-24 cm. heart rate: 149 beats per minute. Maternal cervical canal: 4.5 cm long. Normal lower limit is 2.5 cm. biometrics: Biparietal diameter: 5.0 cm, 21 weeks, 0 day Head circumference: 19.7 cm, 21 weeks, 6 days Abdominal circumference: 17.9 cm, 22 weeks, 5 days Femur length: 3.4 cm, 20 weeks, 6 days Estimated gestational age from initial scan: 21 weeks, 2 days Composite gestational age from present scan: 21 weeks, 4 days Estimated weight and percentile: 455 grams, 74 percent. Measurement variability for biometric dating: +/- 7 days from 14 weeks to 15 weeks 6 days gestation, +/- 10 days from 16 weeks to 21 weeks 6 days gestation, +/- 2 weeks from 22 weeks to 27 weeks 6 days gestation, +/- 3 weeks for 28 weeks gestation or later. weight reference: 4500 g or EFW >90/95% is considered macrosomia or large for gestational age. EFW <10% is small for gestational age. EFW 5% or less is considered intra-uterine growth restriction. Anatomic survey: Neuro: Ventricles are non-dilated at less than 10 mm. Cisterna magna is normal at 3-11 mm. Cerebellum is normal in size and morphology. Nuchal skin fold: Nonspecific mild prominent skin fold/indentation in posterior neck and measures approximately 7 mm in size. Normal at less than 6 mm between 14-21 weeks gestational age. Face: Nose and lips, facial profile are normal. Spine: No evidence for spina bifida. Heart: 4-chambered heart is present, with normal ventricular outflow tracts. Diaphragm: Diaphragm is intact. Stomach: Left-sided stomach is present. Kidneys: No hydronephrosis. Normal is less than 5 mm in 2nd trimester, less than 7 mm in 3rd trimester. Cord: 3-vessel cord has orthotopic insertion. Bladder: Bladder is decompressed on this study and is suboptimally evaluated. Extremities: All 4 extremities identified. 1.2 x 0.4 cm heterogeneously hyper to isoechoic lesion within endocervical canal is seen with internal vascularity. IMPRESSION: 1. Single live intrauterine with fetus in vertex presentation. heart rate is 149 beats per minute. Normal amount of amniotic fluid. Estimated weight is at 74th percentile. 2. Nonspecific borderline prominence of the posterior neck soft tissue and is of indeterminate significance. 3. Urinary bladder is under distended on the current study and is suboptimally evaluated. 4. Rest of the anatomic survey is within normal limits. 5. 1.2 x 0.4 cm ill-defined hyper to isoechoic solid lesion is seen within endocervical canal with internal vascularity, suggest clinical correlation and sonographic follow-up. Patient reported this as a known lesion of indeterminate etiology. Dictated by: Thiago Mc M.D. on 02/05/2021 at 16:21 Approved by: Thiago Mc M.D. on 02/05/2021 at 16:35
== END ==
PROVIDERS: Family Provider Student in an Organized Health Care Education/Training Program; PCP Student in an Organized Health Care Education/Training Program; Referring Provider Obstetrics & Gynecology; Visit Provider Obstetrics & Gynecology
DX: Z34.82 Encounter for supervision of other normal pregnancy, second trimester (principal); Z3A.21 21 weeks gestation of pregnancy
CPT/HCPCS: 76811

== ENCOUNTER → 2021-03-10 15:22 | Outpatient (CLI) | payer OTHER, SELFPAY ==
[2021-03-10 16:55] LABS: Hematocrit 29.4 % (36-46); Hemoglobin 9.7 g/dL (12.0-16.0)
[2021-03-10 17:28] LABS: GTT (PREG) 1 Hour PP 50gm Dose 106 mg/dL (76-139)
== END ==
PROVIDERS: Family Provider Student in an Organized Health Care Education/Training Program; PCP Student in an Organized Health Care Education/Training Program; Referring Provider Obstetrics & Gynecology; Visit Provider Obstetrics & Gynecology
DX: Z34.82 Encounter for supervision of other normal pregnancy, second trimester (principal); Z3A.25 25 weeks gestation of pregnancy
CPT/HCPCS: 36415; 82950; 85014; 85018

== ENCOUNTER → 2021-03-16 16:13 | Outpatient (CLI) | payer OTHER, SELFPAY | PROVIDERS: Family Provider Student in an Organized Health Care Education/Training Program; PCP Student in an Organized Health Care Education/Training Program; Visit Provider Obstetrics & Gynecology | DX: Z34.82 Encounter for supervision of other normal pregnancy, second trimester (principal); R31.9 Hematuria, unspecified; Z3A.26 26 weeks gestation of pregnancy | CPT/HCPCS: 87086 ==

== ENCOUNTER → 2021-04-13 17:29 | Outpatient (CLI) | payer OTHER, SELFPAY | PROVIDERS: Family Provider Student in an Organized Health Care Education/Training Program; PCP Student in an Organized Health Care Education/Training Program; Referring Provider Obstetrics & Gynecology; Visit Provider Obstetrics & Gynecology | DX: Z34.83 Encounter for supervision of other normal pregnancy, third trimester (principal); Z3A.30 30 weeks gestation of pregnancy | CPT/HCPCS: 87086 ==

== ENCOUNTER 2021-04-27 12:41 | Outpatient (CLI) | payer OTHER, SELFPAY | END 2021-04-27 13:28 | disposition home or self-care (01) | LOC: OB 04-29 11:57 | PROVIDERS: Family Provider Student in an Organized Health Care Education/Training Program; PCP Student in an Organized Health Care Education/Training Program; Referring Provider Obstetrics & Gynecology; Visit Provider Obstetrics & Gynecology | DX: O47.03 False labor before 37 completed weeks of gestation, third trimester (principal); Z3A.32 32 weeks gestation of pregnancy | CPT/HCPCS: 59025; G0378; G0379 ==

== ENCOUNTER 2021-05-04 14:57 | Outpatient (CLI) | payer OTHER, SELFPAY | END 2021-05-04 15:41 | disposition home or self-care (01) | LOC: LABOR 15:09 → OB 05-05 07:33 | PROVIDERS: Family Provider Student in an Organized Health Care Education/Training Program; PCP Student in an Organized Health Care Education/Training Program; Referring Provider Student in an Organized Health Care Education/Training Program; Visit Provider Student in an Organized Health Care Education/Training Program | DX: O09.523 Supervision of elderly multigravida, third trimester (principal); Z3A.33 33 weeks gestation of pregnancy | CPT/HCPCS: 59025; G0378; G0379 ==

== ENCOUNTER 2021-05-12 15:14 | Outpatient (CLI) | payer OTHER, SELFPAY | END 2021-05-12 16:15 | disposition home or self-care (01) | LOC: LABOR 16:05 → OB 05-13 14:01 | PROVIDERS: Family Provider Student in an Organized Health Care Education/Training Program; PCP Student in an Organized Health Care Education/Training Program; Referring Provider Obstetrics & Gynecology; Visit Provider Obstetrics & Gynecology | DX: O36.8130 Decreased fetal movements, third trimester, not applicable or unspecified (principal); O09.523 Supervision of elderly multigravida, third trimester; Z3A.35 35 weeks gestation of pregnancy | CPT/HCPCS: 59025; G0378; G0379 ==

== ENCOUNTER 2021-05-19 15:39 | Outpatient (CLI) | payer OTHER, SELFPAY ==
--- NOTE | 2021-05-19 22:08 | P.TNLD_ITS ---
Visit Information Visit Information Date of evaluation: 05/19/21 Primary OB Provider: Ashley Fulton On-call OB Provider: Teresa Todd Reason for Evaluation: Yes non-stress test Comments/Additional reasons for admission: 36 week gestation with lupus and advanced maternal age for nonstress test Vital Signs Vital Signs: blood pressure 131/81, temperature 97.7?, pulse of 93 PFSH Medical History (Updated 05/19/21 @ 22:10 by Teresa Todd MD) Alopecia AMA (advanced maternal age) multigravida 35+ Avascular necrosis of bone of right hip Fibromyalgia (~2013) H/O transfusion of whole blood (~04/2013) History of being hospitalized (~12/2012) Migraine (~09/2020) Pyelonephritis (~02/2020) (spontaneous vaginal delivery) (~08/04/17) (spontaneous vaginal delivery) Surgical History (Updated 11/04/20 @ 13:44 by Camila Floyd, RN) History of total left hip replacement (~04/2019) S/P total hip arthroplasty (~10/2019) Family History (Updated 11/04/20 @ 14:44 by Camila Floyd, RN) Father Family estrangement Mother No problems noted. Grandfather Cancer Family estrangement Grandmother Depression History of prediabetes History of quadruple bypass Hyperlipidemia Grandfather Family estrangement Grandmother Family estrangement Brother No problems noted. Sister Multiple sclerosis Family/Other Mental health problem Social History marital status: number of children: 2 household members: spouse and children lives independently: Yes housing: house pets and animals: Yes (Dog) education level: high school (GED : dropped out of High School in 10th Grade) occupational status: unemployed current occupational exposures/hazards: No mariah/presybeterian: Jainism special mariah needs: No Smoking Status: Former smoker Tobacco: How many years used: 15 Smokeless tobacco user: dissolvable tobacco quit status: has quit before (Many years before ) second hand exposure: No alcohol intake: former (Does not drink anymore) substance use type: does not use and 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 Continue her weekly nonstress tests and routine OB care OB Disposition: home
== END 2021-05-19 16:27 | disposition home or self-care (01) ==
LOC: OB 05-20 09:51
PROVIDERS: Family Provider Student in an Organized Health Care Education/Training Program; PCP Student in an Organized Health Care Education/Training Program; Referring Provider Obstetrics & Gynecology; Visit Provider Obstetrics & Gynecology
DX: O09.523 Supervision of elderly multigravida, third trimester (principal); O26.893 Other specified pregnancy related conditions, third trimester; M32.9 Systemic lupus erythematosus, unspecified; Z3A.36 36 weeks gestation of pregnancy
CPT/HCPCS: 59025; G0378; G0379

== ENCOUNTER 2021-05-25 11:25 | Outpatient (CLI) | payer OTHER, SELFPAY ==
--- NOTE | 2021-05-26 01:45 | PM.OBTRLD ---
Visit Information Visit Information Date of evaluation: 05/25/21 Primary OB Provider: Ashley Fulton On-call OB Provider: Ashley Fulton Reason for Evaluation: Yes non-stress test non-stress test reason: other (SLE) [facility] Medical History (Updated 05/19/21 @ 22:10 by Teresa Todd MD) Alopecia AMA (advanced maternal age) multigravida 35+ Avascular necrosis of bone of right hip Fibromyalgia (~2013) H/O transfusion of whole blood (~04/2013) History of being hospitalized (~12/2012) Migraine (~09/2020) Pyelonephritis (~02/2020) (spontaneous vaginal delivery) (~08/04/17) (spontaneous vaginal delivery) Surgical History (Updated 11/04/20 @ 13:44 by Camila Floyd RN) History of total left hip replacement (~04/2019) S/P total hip arthroplasty (~10/2019) Family History (Updated 11/04/20 @ 14:44 by Camila Floyd RN) Father Family estrangement Mother No problems noted. Grandfather Cancer Family estrangement Grandmother Depression History of prediabetes History of quadruple bypass Hyperlipidemia Grandfather Family estrangement Grandmother Family estrangement Brother No problems noted. Sister Multiple sclerosis Family/Other Mental health problem Social History marital status: number of children: 2 household members: spouse and children lives independently: Yes housing: house pets and animals: Yes (Dog) education level: high school (GED : dropped out of High School in 10th Grade) occupational status: unemployed current occupational exposures/hazards: No mariah/orthodox: Gnosticist special mariah needs: No Smoking Status: Former smoker Tobacco: How many years used: 15 Smokeless tobacco user: dissolvable tobacco quit status: has quit before (Many years before ) second hand exposure: No alcohol intake: former (Does not drink anymore) substance use type: does not use and 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
== END 2021-05-25 12:30 | disposition home or self-care (01) ==
LOC: OB 05-26 07:13
PROVIDERS: Family Provider Student in an Organized Health Care Education/Training Program; PCP Student in an Organized Health Care Education/Training Program; Referring Provider Obstetrics & Gynecology; Visit Provider Obstetrics & Gynecology
DX: O26.893 Other specified pregnancy related conditions, third trimester (principal); M32.9 Systemic lupus erythematosus, unspecified; Z3A.37 37 weeks gestation of pregnancy
CPT/HCPCS: 59025; G0378; G0379

== ENCOUNTER → 2021-05-28 11:12 | Outpatient (CLI) | payer OTHER, SELFPAY ==
[2021-05-29 20:41] LABS: Strep Grp B PCR NEG for Grp B Strep
== END ==
PROVIDERS: Family Provider Student in an Organized Health Care Education/Training Program; PCP Student in an Organized Health Care Education/Training Program; Visit Provider Obstetrics & Gynecology
DX: Z36.85 Encounter for antenatal screening for Streptococcus B; Z3A.37 37 weeks gestation of pregnancy
CPT/HCPCS: 87653

== ENCOUNTER 2021-06-01 13:17 | Inpatient (IN) | payer OTHER, SELFPAY ==
--- NOTE | 2021-06-01 | PATH_ITS ---
[facility] Accession Number: [id number] . 01 Material submitted: . PART A: fallopian tube - BILATERAL FALLOPIAN TUBE PART B: cervix - CERVICAL POLYP . 02 Diagnosis: A. Bilateral Fallopian Tube: Complete cross-sections of segments of fallopian tube x2; negative for atypia or malignancy. . B. Cervical Polyp: Benign, inflamed polyp, favor endocervical origin. Pseudodecidualized stromal change is present, suggestive of possible exogenous hormone effect. Negative for glandular dysplasia, glandular hyperplasia, cytologic atypia, or malignancy. MRV 06/04/2021 1346 Local . 02 Electronically signed: . Niecy Pierce MD, Pathologist NPI- [id number] . 01 Gross description: . A. Received in formalin labeled with the patient's name and additionally labeled bilateral fallopian tubes are two fimbriated fallopian tubes measuring 9.0 cm in length and up to 1.5 cm in diameter and 9.2 cm in length and up to 1.2 cm in diameter. The serosal surfaces are brown smooth and glistening with scattered benign-appearing paratubal cysts. The tubes are serially sectioned revealing hemorrhagic cut surfaces with pinpoint stellate lumina. No masses or lesions are identified. Construction Skills Teacher sections are submitted with the first described tube in cassette A1 and the second described tube in cassette A2. B. Received in formalin labeled with the patient's name and additionally labeled cervical polyp is an aggregate of carranza-brown soft tissue fragments and mucoid material, measuring 2.0 x 1.7 x 0.7 cm. The specimen is wrapped and entirely submitted in cassette B1. ([id number]) /[facility] 06/02/2021 1650 Local . 02 Pathologist provided ICD-10: Z30.2, N84.1 . 02 CPT . 979057, 504270 Specimen Comment: A courtesy copy of this report has been sent to [phone] Performed at: 01 [facility] [address] [id number] MD Edward Watters MD Phone: [phone] Performed at: 02 [facility] [address] [place], [place] [id number] MD Zee Marinelli MD Phone: [phone]
[2021-06-01 15:25] VITALS: BP 125/87
[2021-06-01] MEDS: LACTATED RINGERS 1,000 ML 100 ML IV ×3 (16:03→18:20)
--- NOTE | 2021-06-01 16:05 | PM.OBHP.IH.1 ---
OB HPI Date/Time Date of admission: 06/01/21 Date Patient Seen: 06/01/21 Time Patient Seen: 16:05 History of Present Condition Chief complaint: SLICK Calculator Estimated Delivery Date Method Current WG Current Estimate 06/16/21 Manual 37w 6d Other Estimates 06/18/21 LMP (Certain) 37w 4d 06/16/21 Ultrasound #1 37w 6d Estimated Gestational Age (weeks): 37+6 : 3 Para: 2 care: good care, initiated at week # (9), number of visits (9) and pounds weight gain (38) Dating criteria OB: LMP confirmed by 1st trimester US Ultrasounds: normal 1st trimester US and normal mid trimester US Medical complications OB: immunologic (SLE) Indications Operative indications ( section): other (SLE, s/p bilat hip replacement after steroid use for SLE) Other reason(s) for admission: SROM Preadmission Labs Last OB Lab Results: Blood Type O Positive 12/17/20 16:46 12/17/20 Antibody Screen Negative 12/17/20 16:46 12/17/20 Hematocrit 31.7 % (36-46) L 06/01/21 16:00 06/01/21 Hemoglobin 9.8 g/dL (12.0-16.0) L 06/01/21 16:00 06/01/21 Hepatitis B Surface Antigen Negative s/c (NEGATIVE) 12/17/20 16:46 12/17/20 Hepatitis C Antibody Negative s/c (NEGATIVE) 12/17/20 16:46 12/17/20 Rubella Antibody 12.6 IU/mL (>15) L 12/17/20 16:46 12/17/20 Varicella-Zoster IgG Antibody 171 index (Immune >165) 12/17/20 16:46 12/17/20 Glucose 1 Hour 106 mg/dL (76-139) 03/10/21 16:30 03/10/21 Group B Streptococcus (PCR) Neg for grp b strep 05/28/21 11:12 05/28/21 -: Chlamydia screen: negative, Gonorrhea screen: negative and Urine: negative -: PAP smear: Normal Genetic Screens: Cell-free DNA: Normal and Alpha-fetoprotein: Normal External Labs -: Urine: negative Prior (ies) Past Pregnancies Del. Date GA/Weeks Labor Lgth Wt Sex Route Outcome Anesthesia Place Delv Breastfeed Preg Comp Name 05/11/07 40.1 18 7 lb 1 oz Female vaginal live - full term epidural IH Dr Fulton 11+pumping and supplement post-dates induction Estrella 08/04/17 38.1 12 7 lb 7 oz Male vaginal vacuum live - full term epidural IH Dr Fulton 30 months other Cj Neves Delivery Date: 05/11/07 Last Updated by: Camila Floyd R.N. *Pitocin. *No issues PP. Delivery Date: 08/04/17 Last Updated by: Camila Floyd R.N. *Induction due to placental insufficiency : Kelley has Lupus. *Pitocin. *Fragile PP. Evaluation Evaluation Baseline heart rate: 140 Variability: Moderate (11-25) monitor accelerations: Present Monitor Decelerations: Absent Status: Category l [facility] Medical History (Updated 05/19/21 @ 22:10 by Teresa Todd MD) Alopecia AMA (advanced maternal age) multigravida 35+ Avascular necrosis of bone of right hip Fibromyalgia (~2013) H/O transfusion of whole blood (~04/2013) History of being hospitalized (~12/2012) Migraine (~09/2020) Pyelonephritis (~02/2020) (spontaneous vaginal delivery) (~08/04/17) (spontaneous vaginal delivery) Surgical History (Updated 11/04/20 @ 13:44 by Camila Floyd RN) History of total left hip replacement (~04/2019) S/P total hip arthroplasty (~10/2019) Family History (Updated 11/04/20 @ 14:44 by Camila Floyd RN) Father Family estrangement Mother No problems noted. Grandfather Cancer Family estrangement Grandmother Depression History of prediabetes History of quadruple bypass Hyperlipidemia Grandfather Family estrangement Grandmother Family estrangement Brother No problems noted. Sister Multiple sclerosis Family/Other Mental health problem Social History marital status: number of children: 2 household members: spouse and children lives independently: Yes housing: house pets and animals: Yes (Dog) education level: high school (GED : dropped out of High School in 10th Grade) occupational status: unemployed current occupational exposures/hazards: No mariah/jain: Buddhism special mariah needs: No Smoking Status: Former smoker Tobacco: How many years used: 15 Smokeless tobacco user: dissolvable tobacco quit status: has quit before (Many years before ) second hand exposure: No alcohol intake: former (Does not drink anymore) substance use type: does not use and 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) Meds Home Medications and Allergies Home Medications Medication Instructions Recorded Confirmed Type hydromorphone 4 mg tablet 4 mg PO QIDP PRN #0 11/16/16 05/28/21 History (Dilaudid) cyclobenzaprine 10 mg tablet 10 mg PO BEDTIME 07/02/20 05/28/21 History hydroxychloroquine 200 mg tablet 400 mg PO DAILY tab 07/02/20 05/28/21 History omeprazole 20 mg tablet,delayed 20 mg PO BID #180 tab 03/03/21 05/28/21 Rx release metoclopramide HCl 10 mg tablet See Rx Instructions .ROUTE 05/18/21 05/28/21 Rx .COMPLEX #20 tab Allergies Allergy/AdvReac Type Severity Reaction Status Date / Time No Known Allergies Allergy Uncoded 05/28/21 09:54 OB Exam Narrative Exam Narrative: HEENT: No thyromegaly, no anterior cervical or supraclavicular lymphadenopathy. Lungs:Clear to auscultation bilaterally, no wheezes. Cardiovascular: Regular rate and rhythm, no murmurs, rubs, or gallops. Abdomen: No scars. No hepatosplenomegaly. No masses palpable. External genitalia: Normal Vagina: Normal Cervix: Parous Fundal height: 38 cm Estimated weight: 7 lb new Extremities: Trace edema, negative Homans, 1+ DTRs Objective Labs Result Diagrams: 06/01/21 16:00 Assessment and Plan Assessment and Plan Assessment and Plan narrative: Assessment: 35-year-old 3 para 2 at 37 and 6 seventh weeks with spontaneous rupture of membranes, scheduled for a primary section due to bilateral hip replacement after steroid use for systemic lupus erythematosus Desires permanent sterilization Cervical polyp Plan: Primary section, bilateral salpingectomy and removal of cervical polyp The risks, benefits, and alternatives to the procedure were explained to the patient. The risks including bleeding, infection, injury to the bowel, bladder, or ureters. She does understand that removing the tubes will make her unable to have another . She understands all of these risks and agrees to proceed. A full par Q was held and consent form was signed. Time Spent with Patient Total time spent with greater than 50% in coordination of care (as documented) at patient's floor/unit and/or counseling patient:: 15-24 minutes
[2021-06-01 16:11] LABS: COVID19 -Nasal RAPID Negative (Negative)
[2021-06-01 16:12] LABS: Add Manual Diff / Slide Review NO; Basophils Absolute Auto 100 /uL (0-100); Basophils Percent Auto 0.6 % (0-2); Eosinophils Absolute Auto 100 /uL (0-450); Eosinophils Percent Auto 0.9 % (2-4); Hematocrit 31.7 % (36-46); Hemoglobin 9.8 g/dL (12.0-16.0); Lymphocytes Absolute Auto 1400 /uL (1100-4500); Lymphocytes Percent Auto 13.6 % (25-40); Mean Corpuscular Hemoglobin 22.7 PG (26-34); Mean Corpuscular Volume 73.3 fL (80-100); Monocytes Absolute Auto 700 /uL (0-900); Neutrophils Absolute Auto 8000 /uL (1500-7000); Neutrophils Percent Auto 77.9 % (50-75); Platelet Count 247 X10^3/uL (150-400); Red Blood Cell Count 4.32 X10^6/uL (4.0-5.2); Red Cell Distribution Width 19.2 % (11.6-14.8); White Blood Cell Count 10.3 X10^3/uL (4.5-11.0)
[2021-06-01] MEDS: CITRIC ACID/SODIUM CITRATE 15 ML SOLUTION 30 ML PO (16:15)
--- NOTE | 2021-06-01 16:43 | PM.PREOP ---
Pre-operative Note COVID-19 COVID-19 status: Negative Result date/Date tested (Pos, Neg/Pending): 06/01/21 Criteria for continued procedure: Non-surgical alternatives not available or appropriate per current SOC Interval Note History & Physical reviewed/Exam performed by Physician: Yes Changes to H&P: No H&P completed within 30 days and has changed as indicated here:: 06/01/21
[2021-06-01] MEDS: CEFAZOLIN 2 GM/20 ML SYRINGE IV (16:52)
--- NOTE | 2021-06-01 17:20 | SUR.OPER ---
Supine on Padded OR bed, head on pillow, safety belt at thigh, arms secured on padded arm boards at <90 degrees abduction. Bump under right buttock. Legs uncrossed with pillow under knees, gel pad to heels, tape over blanket to lower legs.
--- NOTE | 2021-06-01 17:23 | SUR.OPER ---
Viable female delivered at 1716. cord blood and placenta sent with L&D nurse.
--- NOTE | 2021-06-01 18:14 | PM.OBCS.1 ---
Operative Date/Time/Diagnoses Date of procedure: 06/01/21 Time of procedure: 18:15 Pre-op diagnosis: 39 weeks gestation Spontaneous rupture of membranes Scheduled for primary section Desires permanent sterilization Cervical polyp Perineal skin tag History of bilateral hip replacements, not recommended to Labor Post-op diagnosis: same Procedure & Clinicians Procedure: Primary low-transverse section Bilateral salpingectomy Cervical polyp removal Excision of perineal skin tag Same procedure as scheduled: Yes Indications: 39 weeks gestation Spontaneous rupture of membranes Scheduled for primary section Status post bilateral hip replacements Desires permanent sterilization Perineal skin tag Surgeon: Ashley Fulton Click Yes if Unassisted: No Dragline Oiler: Livier Zimmerman Reason for Dragline Oiler: The licensed physical therapy assistant was necessary for retraction upon entering the abdomen and uterus. The licensed physical therapy assistant provided fundal pressure with delivery of the infant. The licensed physical therapy assistant provided retraction and clipping of suture with closing of the uterus and the abdomen. Anesthesia Type: Spinal (With Duramorph) Operative Notes Findings: Live female infant in the left occiput transverse presentation Normal tubes and ovaries 1.0 x 0.5 cm perineal skin tag 3.0 x 1.5 cm cervical polyp Closure Type: primary Specimen(s): cord blood, placenta and tubes/segments of tubes Intraoperative meds administered: Duramorph, Ketorolac and Pitocin Applied: Catheter (To continuous drainage) Estimated Blood Loss (mL): 600 Blood products transfused: none Procedure in detail: The patient was taken to the operating room where she was placed in the seated position. Spinal anesthesia with Duramorph was administered. She was then placed in the dorsal supine position with a leftward tilt. She was prepped and draped in the usual sterile fashion. A timeout was performed. After spinal analgesia was found to be adequate, a Pfannenstiel skin incision was made 2 fingerbreadths above the pubic symphysis and carried through to the underlying layer fascia. The fascia was nicked in the midline, and the incision extended bilaterally with the Whitmore scissors. The superior aspect of the fascial incision was grasped with a Eva clamps, elevated, and the underlying rectus muscles dissected off sharply and bluntly. Attention was then turned to the inferior aspect of this incision which in a similar fashion was grasped with a Kervin clamps, elevated, and the underlying rectus muscles dissected off sharply and bluntly. The rectus muscles were in the midline. The peritoneum was identified, grasped between 2 hemostats, and entered sharply with the Metzenbaum scissors. This incision was extended superiorly and inferiorly with good visualization of the bladder. The bladder blade was inserted. The vesicouterine peritoneum was identified, grasped with the pickup, and entered sharply with the Metzenbaum scissors. This incision was extended bilaterally, and the bladder flap was created digitally. The bladder blade was reinserted. The lower uterine segment was incised in a transverse fashion with the scalpel. Upon entering the amniotic sac there was a small amount of clear amniotic fluid. The 's head was delivered without difficulty. The nose and mouth were suctioned with bulb suction. The remainder of the body was delivered without difficulty. The cord was double clamped and cut after 1 minute. Cord bloods were obtained. The was handed off to waiting RN and RT. The placenta was delivered manually. The uterus was cleared of all clots and debris. The uterine incision was repaired with #1 chromic in a running interlocking fashion, and a second layer the same suture was used for an imbricating layer. Hemostasis was achieved. The tubes and ovaries were examined and were found to be normal. The left tube was grasped with a [place]. The tube was carried out to the fimbriated end. The LigaSure was used to cauterize and cut the mesosalpinx. The tube was amputated at the cornua of the uterus. This was repeated on the patient's right tube. The gutters were cleared of all clots and debris. The bladder flap was reapproximated using 2-0 Vicryl in a running fashion. The parietal peritoneum was closed using 2-0 Vicryl in a running fashion. The fascia was reapproximated using 0 Vicryl in a running fashion. The subcutaneous layer was copiously irrigated with warm normal saline. Five simple interrupted sutures of 3-0 Vicryl were placed to reapproximate the subcutaneous layer. The skin was closed with 4-0 Monocryl in a subcuticular fashion. Steri-Strips were placed. An Aquacel dressing was placed. The uterus was expressed of a small amount of old blood. Attention was then turned to the vagina where a bivalve speculum was placed into the vagina. There was a large cervical polyp which was grasped with a ring forceps and twisted to remove. A lap was placed into the vagina for hemostasis and then removed. Sponge, lap, and instrument counts were correct x-2. The patient tolerated the procedure well, and was taken to PACU in stable condition. Complications: none Baby 1: Gender: Female Presentation: vertex Position: Left Occiput Transverse Placental Delivery Description: Expressed and Manual Removal Cord Vessel Description: 3 Vessels and Clamped/Cut (after 1 minute) score (1 min): 9 score (5 min): 9 weight: 7 lb 10 oz Post-operative Condition: stable Disposition: PACU Aftercare: routine postop
[2021-06-01 18:22] VITALS: BP 135/83; PULSE 87; RESP 14; TEMP 36.6; O2SAT 100
[2021-06-01 18:27] VITALS: BP 127/78; PULSE 83; RESP 16; O2SAT 100
[2021-06-01 18:32] VITALS: BP 130/86; PULSE 90; RESP 11; O2SAT 100
[2021-06-01 18:37] VITALS: BP 123/78; PULSE 80; RESP 13; O2SAT 100
[2021-06-01 18:42] VITALS: BP 122/79; PULSE 84; RESP 13; O2SAT 100
[2021-06-01] MEDS: ACETAMINOPHEN 325 MG TABLET 650 MG PO (19:59)
[2021-06-01] MEDS: OXYCODONE IR 5 MG TABLET 10 MG PO (20:00)
[2021-06-02] MEDS: HYDROMORPHONE 4 MG TABLET PO ×5 (00:12→21:30)
[2021-06-02] MEDS: LACTATED RINGERS 1,000 ML 100 ML IV (01:00)
[2021-06-02] MEDS: KETOROLAC 30 MG/ML VIAL IV ×3 (01:05→13:24)
[2021-06-02] MEDS: OXYCODONE IR 5 MG TABLET PO ×6 (01:08→20:04)
[2021-06-02] MEDS: ACETAMINOPHEN 325 MG TABLET 650 MG PO ×4 (02:03→20:05)
[2021-06-02 05:36] LABS: Hematocrit 25.9 % (36-46); Hemoglobin 7.9 g/dL (12.0-16.0)
[2021-06-02] MEDS: DOCUSATE 100 MG CAPSULE 200 MG PO (09:12)
[2021-06-02] MEDS: PRENATAL VIT,CALC/IRON/FOLIC 1 TABLET 1 TAB PO (09:13)
[2021-06-02] MEDS: PANTOPRAZOLE DR 20 MG TABLET PO ×2 (09:21→21:19)
--- NOTE | 2021-06-02 18:38 | PM.OBPN.1 ---
Subjective - OB Subjective Patient comments: incisional pain and tolerating diet baby status: doing well and nursing well [place] feeding status: exclusively breast feeding Date Patient Seen: 06/02/21 Time Patient Seen: 18:38 Exam Vital Signs (past 8 hours): Oxygen Delivery Method Room Air Narrative Exam Narrative: Generally: Patient is sitting up in bed, nursing infant, no acute distress Lungs: Clear to auscultation bilaterally Cardiovascular: Regular rate and rhythm Abdomen: Soft, appropriately tender Fundus: Firm at U -1 Incision: Clean dry and intact with Aquacel dressing Extremities: Trace edema, negative Homans Objective Labs Result Diagrams: 06/02/21 05:20 Labs: Laboratory Results - last 24 hr 06/02/21 05:20 Hgb 7.9 L Hct 25.9 L Assessment & Plan Plan day: 1 plan OB: routine postop care Time Spent With Patient Time: Total time spent is greater than 50% in coordination of care (as documented) at patient's floor/unit and/or counseling patient: Time with patient: 15-24 minutes
[2021-06-02] MEDS: IBUPROFEN 600 MG TABLET PO (20:07)
[2021-06-02] MEDS: HYDROXYCHLOROQUINE 200 MG TABLET 400 MG PO (21:20)
[2021-06-03] MEDS: IBUPROFEN 600 MG TABLET PO ×4 (01:39→13:12)
[2021-06-03] MEDS: OXYCODONE IR 5 MG TABLET PO ×5 (01:42→13:12)
[2021-06-03] MEDS: HYDROMORPHONE 4 MG TABLET PO ×2 (03:31→10:16)
[2021-06-03 07:36] VITALS: BP 119/70; PULSE 84; RESP 13; TEMP 36.5
[2021-06-03] MEDS: DOCUSATE 100 MG CAPSULE 200 MG PO (07:42)
[2021-06-03] MEDS: PRENATAL VIT,CALC/IRON/FOLIC 1 TABLET 1 TAB PO (07:42)
[2021-06-03] MEDS: ACETAMINOPHEN 325 MG TABLET 650 MG PO ×2 (07:42→13:12)
[2021-06-03] MEDS: MEASLES,MUMPS,RUBELLA VACC/PF 0.5 ML VIAL SUBCUT (14:16)
--- NOTE | 2021-06-03 15:42 | PM.OBPN.1 ---
Subjective - OB Subjective Patient comments: incisional pain [place] baby status: doing well and nursing well feeding status: exclusively breast feeding Date Patient Seen: 06/03/21 Time Patient Seen: 12:50 Interval history: Postop day # 2 status post primary low-transverse section, bilateral salpingectomy, removal of cervical polyp, and excision of perineal skin tag Passing flatus. Voiding without difficulty. Pain is well controlled. going well. Exam Vital Signs (past 8 hours): Oxygen Delivery Method Room Air Narrative Exam Narrative: Generally: Patient is sitting up in bed, holding infant, no acute distress Lungs: Clear to auscultation bilaterally Cardiovascular: Regular rate and rhythm Fundus: Firm at U-1 Incision: Clean dry and intact with Aquacel dressing Extremities: 1+ edema, negative Homans Objective Labs Result Diagrams: 06/02/21 05:20 Assessment & Plan Plan day: 2 plan OB: discharge home Time Spent With Patient Time: Total time spent is greater than 50% in coordination of care (as documented) at patient's floor/unit and/or counseling patient: Time with patient: 15-24 minutes
== END 2021-06-03 15:33 | disposition home or self-care (01) | DRG 785 ==
PROVIDERS: Admitting Provider Obstetrics & Gynecology; Family Provider Student in an Organized Health Care Education/Training Program; PCP Student in an Organized Health Care Education/Training Program; Referring Provider Obstetrics & Gynecology; Visit Provider Obstetrics & Gynecology
PROC: 10D00Z1 Extraction of Products of Conception, Low, Open Approach (ICD-10-PCS; CPT 59514; principal; 2021-06-01 16:30)
DX: O99.892 Other specified diseases and conditions complicating childbirth (principal); M32.9 Systemic lupus erythematosus, unspecified; Z96.643 Presence of artificial hip joint, bilateral; O42.92 Full-term premature rupture of membranes, unspecified as to length of time between rupture and onset of labor; Z3A.37 37 weeks gestation of pregnancy; Z37.0 Single live birth; Z30.2 Encounter for sterilization; O34.43 Maternal care for other abnormalities of cervix, third trimester; N84.1 Polyp of cervix uteri; N90.89 Other specified noninflammatory disorders of vulva and perineum
CPT/HCPCS: 36415; 58611; 59050; 59510; 84112; 85014; 85018; 85025; 86850; 86900; 86901; 87635; C9803; G0379; J0690; J1885; J2250; J2274; J2405; J2590; J2765; J3010